=== PATIENT | female | born 1950 | race Caucasian/White ===

== ENCOUNTER → 2019-05-20 10:39 | Outpatient (BNVA) | payer MEDICARE, SELFPAY | PROVIDERS: Family Provider Family Medicine; PCP Family Medicine; Visit Provider Family Medicine | DX: R00.1 Bradycardia, unspecified (principal); F41.1 Generalized anxiety disorder; F41.9 Anxiety disorder, unspecified; K21.9 Gastro-esophageal reflux disease without esophagitis; F33.41 Major depressive disorder, recurrent, in partial remission | CPT/HCPCS: 80053; 85025 ==

== ENCOUNTER → 2020-01-20 12:48 | Outpatient (BNVA) | payer MEDICARE, SELFPAY | PROVIDERS: Family Provider Family Medicine; PCP Family Medicine; Visit Provider Family Medicine | DX: K21.9 Gastro-esophageal reflux disease without esophagitis (principal); R00.1 Bradycardia, unspecified; G47.33 Obstructive sleep apnea (adult) (pediatric); F41.9 Anxiety disorder, unspecified; F33.41 Major depressive disorder, recurrent, in partial remission; Z72.0 Tobacco use; Z12.31 Encounter for screening mammogram for malignant neoplasm of breast; F17.210 Nicotine dependence, cigarettes, uncomplicated | CPT/HCPCS: 80053; 81000; 85025 ==

== ENCOUNTER 2020-08-06 14:23 | Outpatient (CLI) | payer MEDICARE, SELFPAY ==
--- NOTE | 2020-08-06 14:29 | MM_ITS ---
WS: [id number] BILATERAL SCREENING DIGITAL MAMMOGRAM WITH CAD HISTORY: screening COMPARISON: 10/20/2010, 10/13/2010 and 09/28/2010 Bilateral CC and MLO views submitted. Computer aided detection analyzed. Breast composition: There are scattered areas of fibroglandular density. No suspicious masses, microc alcifications or architectural distortion. Biopsy clip and prior biopsy of the nodule middle depth RI GHT breast at 9:00 which is stable. Additional prior biopsy clip 3:00 LEFT breast. No suspicious mass es or calcifications. MM/[place] [id number] IMPRESSION: BI-RADS: 2-Benign FOLLOW UP: 1 Year Follow-up
== END 2020-08-06 14:24 | disposition home or self-care (01) ==
LOC: RADSHAW 14:28
PROVIDERS: PCP Family Medicine; Visit Provider Family Medicine
DX: Z12.31 Encounter for screening mammogram for malignant neoplasm of breast (principal)
CPT/HCPCS: 77067

== ENCOUNTER 2021-03-02 12:59 | Outpatient (CLI) | payer MEDICARE, SELFPAY ==
--- NOTE | 2021-03-02 13:14 | XR_ITS ---
WS: [id number] CERVICAL SPINE TECHNIQUE: 3 views of the cervical spine CLINICAL INFORMATION: neck pain COMPARISON: None. FINDINGS: Straightening of the normal cervical lordosis. Slight anterolisthesis C4 on C5. This measures approxi mately 2.2 mm. Disc space narrowing worse at C5-C6 and C6-C7. Moderate spondylitic changes. Moderate facet arthropathy in the mid cervical spine. Normal C1-C2 articulation. XR/XR cervical spine 3V* [id number] IMPRESSION: 1. Straightening of the normal cervical lordosis with anterolisthesis C4 on C5 measuring 2.2 mm 2. Mild disc space narrowing worse at C4-C5 C5-C6 and C6-C7. 3. Normal C1-C2 articulation. 4. Moderate facet arthropathy mid cervical spine.
== END 2021-03-02 13:00 | disposition home or self-care (01) ==
PROVIDERS: PCP Family Medicine; Visit Provider Family Medicine
DX: M47.812 Spondylosis without myelopathy or radiculopathy, cervical region (principal)
CPT/HCPCS: 72040

== ENCOUNTER 2021-03-27 04:34 | Inpatient (IN) | payer MEDICARE, SELFPAY ==
[2021-03-27] VITALS (28 sets, daily range): BP systolic 114–209; BP diastolic 62–103; PULSE 57–114; RESP 16–22; TEMP 36.3–37.2; O2SAT 90–98; BMI 38.1
--- NOTE | 2021-03-27 04:39 | CTR_ITS ---
PROCEDURE INFORMATION: Exam: CT Abdomen And Pelvis With Contrast Exam date and time: 03/27/2021 4:39 AM Age: 70 years old Clinical indication: Abdominal pain; Prior surgery; Surgery type: Gb. Hernia repair. ; Patient HX: Epigastric pain. Elevated wbc. Lactic of 5.6. ; Additional info: Abd pain TECHNIQUE: Imaging protocol: Computed tomography of the abdomen and pelvis with contrast. Radiation optimization: All CT scans at this facility use at least one of these dose optimization techniques: automated exposure control; mA and/or kV adjustment per patient size (includes targeted exams where dose is matched to clinical indication); or iterative reconstruction. Contrast material: OMNI 300; Contrast volume: 95 ml; Contrast route: INTRAVENOUS (IV); COMPARISON: CT abdomen pelvis w con* [id number] 06/09/2015 12:23 PM RADIATION DOSE METRICS: Total DLP (mGy-cm): 1544.53 FINDINGS: Liver: Normal. No mass. Gallbladder and bile ducts: There is mild intra and extrahepatic biliary ductal dilatation, likely secondary to post cholecystectomy status. Pancreas: Normal. No ductal dilation. Spleen: Normal. No splenomegaly. Adrenal glands: Normal. No mass. Kidneys and ureters: Symmetric enhancement of the kidneys. There is a subcentimeter focus of decreased attenuation in the left upper kidney, which is too small to characterize. There is bilateral nonobstructive kidney stones, the largest on the left measuring 0.6 cm. No hydronephrosis. Stomach and bowel: A small fat containing umbilical hernia is present. Multiple surgical clips are seen in the para-aortic region and along the pelvic wall bilaterally. There is multiple dilated loops of small bowel with scattered air-fluid levels, mild stranding of the surrounding fat, and transition point within an incarcerated Spigelian hernia in the left lower quadrant. Appendix: No evidence of appendicitis. Intraperitoneal space: Unremarkable. No free air. No significant fluid collection. Vasculature: Unremarkable. No abdominal aortic aneurysm. Lymph nodes: Unremarkable. No enlarged lymph nodes. Urinary bladder: Unremarkable as visualized. Reproductive: Unremarkable as visualized. Bones/joints: Degenerative changes of the spine seen. Soft tissues: See Stomach and bowel finding. CT/CT abdomen pelvis w con* [id number] IMPRESSION: Small-bowel obstruction with transition point within a left lower quadrant Spigelian hernia. COMMENTS: Consistent with the [employer]'s Incidental Findings Committee white paper (J Am Abeba Radiol 2018): Any incidental renal lesion less than 1 cm or classified as too small to characterize, or any incidental cystic renal lesion characterized as simple-appearing, is likely benign. No follow-up imaging is recommended for these lesions per consensus recommendations based on imaging criteria.
--- NOTE | 2021-03-27 04:40 | W.ED.ABDPA2 ---
Documented by User: Frida Felix MD 03/27/21 05:32 HPI - Abdominal Pain General: Chief Complaint: Abdominal Pain Stated Complaint: ABD PAIN Time Seen by Provider: 03/27/21 04:35 Source: patient and EMS Mode of arrival: EMS Limitations: no limitations History of Present Illness: HPI narrative: 70-year-old female states she has got chronic abdominal pain states she started having severe pain that started roughly 11 hours ago. She states this is worse than her typical pain from her hernias. States pain is currently a 10 out of 10 worse with movement improved with rest she has had no vomiting no diarrhea. She denies any radiation of her pain denies any chest pain denies any fevers. Associated Symptoms: Denies chills, dysuria and fever(s) Review of Systems Const: Denies: fever(s), chills, body aches or change in appetite Eyes: Denies: blurry vision or eye discomfort ENMT: Denies: throat pain or dental pain Card: Denies: chest pain Resp: Denies: dyspnea GI: Reports: abdominal pain : Denies: dysuria Musc: Denies: neck pain or back pain Skin/Breast: Denies: rash Neuro: Denies: headache(s) Psych: Denies: depression Surendra/Lymph: Denies: easy bruising All/Imm: Denies: urticaria PFSH ED PFSH: Medical History (Updated 03/29/21 @ 06:49 by Allen Ko DO) Anxiety GERD (gastroesophageal reflux disease) ALEJANDRO (obstructive sleep apnea) Recurrent major depression Surgical History (Updated 03/28/21 @ 14:27 by Miguel Garrett MD) History of cholecystectomy History of incisional hernia repair (~12/2017) History of incisional hernia repair (03/27/21) Left lower quadrant spigelian-laparoscopic History of total hysterectomy S/P laparotomy for SBO from adhesions Status post colonoscopy (~2017) Family History (Updated 03/27/21 @ 10:27 by Jasmeet Peterson MD) Other Family history non-contributory Social History Smoking and tobacco status: current every day smoker Alcohol intake: never Physical Exam Const: COMMON NORMALS: patient oriented x3 and healthy appearing GENERAL APPEARANCE: in distress HENMT: COMMON NORMALS: normocephalic and atraumatic HEAD & SCALP: normocephalic and atraumatic Eye: COMMON NORMALS: Equal, round and reactive pupils present and EOMs intact bilaterally PUPIL: Yes Equal, round and reactive pupils present Neck/C-Spine: COMMON NORMALS: full ROM and supple Chest: COMMONS NORMALS: normal inspection of the chest and normal palpation of entire chest wall Resp: COMMON NORMALS: normal respiratory effort, No retractions, No use of accessory muscles and clear to auscultation bilaterally AUSCULTATION: clear to auscultation bilaterally Cardio: COMMON NORMALS: regular rate, regular rhythm and No murmurs present (Cardio) RATE: regular rate RHYTHM: regular rhythm GI: COMMON NORMALS: Normal to inspection, nondistended, normoactive bowel sounds present, Soft to palpation and no masses PALPATION: Yes Soft to palpation and Yes Tenderness to palpation present (GI) Details: LLQ Extremity: COMMON NORMALS: normal to inspection and full ROM Neuro: COMMON NORMALS: patient oriented x3, moves all extremities and no focal motor deficits Psych: COMMON NORMALS: mental status grossly normal, Normal thought process present and cooperative THOUGHT PROCESS: Normal thought process present Skin: COMMON NORMALS: no rashes or lesions noted and no wounds GENERAL SKIN EXAM: no rashes or lesions noted Course Vital Signs: Vital signs: Vital Signs Temperature 98.4 F 03/29/21 04:00 Pulse Rate 71 03/29/21 04:00 Respiratory Rate 20 H 03/29/21 04:19 Blood Pressure 171/78 03/29/21 04:00 Pulse Oximetry 95 03/29/21 04:00 MDM - Abdominal Pain Lab Data: Labs: Lab Results 03/27/21 03/27/21 03/27/21 04:52 04:52 04:52 WBC 14.8 10^3/uL H 10 ^3/uL (4.0-10.0) RBC 4.90 10^6/uL 10^6 /uL (4.1-5.3) Hgb 14.5 g/dL g/dL (11.5-15.3) Hct 44.3 % % (37.0-47.0) MCV 90.4 fl fl (81-99) MCH 29.6 pg pg (28.0-34.0) MCHC 32.7 g/dL g/dL (30.0-36.0) RDW 13.2 % % (12.1-15.1) Plt Count 225 10^3/cmm 10^3 /cmm (130-400) MPV 12.2 fL H fL (7.4-10.4) Neut % (Auto) 89.8 % % Lymph % (Auto) 6.4 % % [place] % (Auto) 3.0 % % Eos % (Auto) 0.0 % % Baso % (Auto) 0.3 % % Neut # (Auto) 13.25 10^3/uL H 1 0^3/uL (1.8-7.7) Lymph # (Auto) 0.9 10^3/uL 10^3/ uL (0.8-4.8) [place] # (Auto) 0.5 10^3/uL 10^3/ uL (0.2-0.9) Eos # (Auto) 0.0 10^3/uL 10^3/ uL (0.0-0.8) Baso # (Auto) 0.1 10^3/uL 10^3/ uL (0.0-0.1) Nucleated RBC % (a uto) 0 % % Nucleated RBCs # 0.0 /100WBC /100W BC Sodium 136 mmol/L mmol/L (136-145) Potassium 3.5 mmol/L mmol/L (3.5-5.1) Chloride 97 mmol/L L mmol/ L (98-107) Carbon Dioxide 17 mmol/L L mmol/ L (22-29) Anion Gap 25.5 H (5-19) BUN 12 mg/dL mg/dL (8-23) Creatinine 0.7 mg/dL mg/dL (0.5-0.9) GFR Calculation 83.2 mL/min L mL/ min (90-130) Glucose 194 mg/dL H mg/dL (65-115) Calculated Osmolal ity 287 mOsm/kg mOsm/ kg (285-295) Lactic Acid Lactate 5.6 mmol/L H* mmo l/L (0.5-2.2) Calcium 9.0 mg/dL mg/dL (8.5-10.5) Total Bilirubin 0.8 mg/dL mg/dL (0.15-1.2) AST 17 U/L U/L (0-32) ALT 12 U/L U/L (0-33) Alkaline Phosphata se 86 IU/L IU/L (35-105) Troponin T Baselin e Total Protein 7.9 g/dL g/dL (6.6-8.7) Albumin 4.5 g/dL g/dL (3.5-5.2) Globulin 3.4 g/dL g/dL (1.3-4.6) Lipase 71 U/L H U/L (13-60) TSH Urine Color Urine Appearance Urine pH Ur Specific Gravit y Urine Protein Urine Glucose (UA) Urine Ketones Urine Blood Urine Nitrate Urine Bilirubin Prot Sulfosalicyli c Acd Urine Urobilinogen Ur Leukocyte Karis ase Urine RBC Urine WBC Ur Squamous Epith Cells Calcium Oxalate Cr ystal Uric Acid Crystals Triple Phos Antoinette ls Other Crystals Amorphous Sediment Urine Bacteria Urine Mucus 03/27/21 03/27/21 03/27/21 06:20 07:51 10:00 WBC RBC Hgb Hct MCV MCH MCHC RDW Plt Count MPV Neut % (Auto) Lymph % (Auto) [place] % (Auto) Eos % (Auto) Baso % (Auto) Neut # (Auto) Lymph # (Auto) [place] # (Auto) Eos # (Auto) Baso # (Auto) Nucleated RBC % (a uto) Nucleated RBCs # Sodium Potassium Chloride Carbon Dioxide Anion Gap BUN Creatinine GFR Calculation Glucose Calculated Osmolal ity Lactic Acid 4.5 mmol/L H* mmo l/L (0.5-2.2) Lactate Calcium Total Bilirubin AST ALT Alkaline Phosphata se Troponin T Baselin e Total Protein Albumin Globulin Lipase TSH 4.12 uIU/mL uIU/m L (0.27-4.20) Urine Color Yellow (Yellow) Urine Appearance Clear (CLEAR) Urine pH 8 H (5-7) Ur Specific Gravit y 1.010 (1.005-1.030) Urine Protein Neg (Negative) Urine Glucose (UA) Norm (Normal) Urine Ketones 1+ H (Negative) Urine Blood 2+ H (Negative) Urine Nitrate Negative (Negative) Urine Bilirubin Neg (Negative) Prot Sulfosalicyli c Acd Negative (Negative) Urine Urobilinogen Norm mg/dL mg/dL (Negative) Ur Leukocyte Karis ase Negative (Negative) Urine RBC 0-4 /hpf H /hpf (0-2) Urine WBC Rare /hpf /hpf (0-5) Ur Squamous Epith Cells 0-4 /hpf H /hpf (0-5) Calcium Oxalate Cr ystal None /hpf /hpf Uric Acid Crystals N /hpf /hpf Triple Phos Antoinette ls None /hpf /hpf Other Crystals N /hpf /hpf Amorphous Sediment Not Reportable Urine Bacteria 1+ /hpf H /hpf (NONE) Urine Mucus N /hpf /hpf 03/27/21 03/27/21 10:00 10:14 WBC RBC Hgb Hct MCV MCH MCHC RDW Plt Count MPV Neut % (Auto) Lymph % (Auto) [place] % (Auto) Eos % (Auto) Baso % (Auto) Neut # (Auto) Lymph # (Auto) [place] # (Auto) Eos # (Auto) Baso # (Auto) Nucleated RBC % (a uto) Nucleated RBCs # Sodium Potassium Chloride Carbon Dioxide Anion Gap BUN Creatinine GFR Calculation Glucose Calculated Osmolal ity Lactic Acid Lactate 2.3 mmol/L H mmol /L (0.5-2.2) Calcium Total Bilirubin AST ALT Alkaline Phosphata se Troponin T Baselin e 14 ng/L H ng/L (0-10) Total Protein Albumin Globulin Lipase TSH Urine Color Urine Appearance Urine pH Ur Specific Gravit y Urine Protein Urine Glucose (UA) Urine Ketones Urine Blood Urine Nitrate Urine Bilirubin Prot Sulfosalicyli c Acd Urine Urobilinogen Ur Leukocyte Karis ase Urine RBC Urine WBC Ur Squamous Epith Cells Calcium Oxalate Cr ystal Uric Acid Crystals Triple Phos Antoinette ls Other Crystals Amorphous Sediment Urine Bacteria Urine Mucus Discharge Plan Discharge Patient Disposition: Admitted As Inpatient Admit Provider: Miguel Garrett Clinical Impression: SBO (small bowel obstruction), Metabolic acidosis, Incarcerated ventral hernia, GERD (gastroesophageal reflux disease) Condition: Stable Coding Level of Care Code ED 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 Exam Comprehensive Documented by User: Allen Ko DO 03/29/21 06:49 HPI - Abdominal Pain General: Chief Complaint: Abdominal Pain Stated Complaint: ABD PAIN Time Seen by Provider: 03/27/21 04:35 PFSH ED PFSH: Medical History (Updated 03/29/21 @ 06:49 by Allen Ko DO) Anxiety GERD (gastroesophageal reflux disease) ALEJANDRO (obstructive sleep apnea) Recurrent major depression Surgical History (Updated 03/28/21 @ 14:27 by Miguel Garrett MD) History of cholecystectomy History of incisional hernia repair (~12/2017) History of incisional hernia repair (03/27/21) Left lower quadrant spigelian-laparoscopic History of total hysterectomy S/P laparotomy for SBO from adhesions Status post colonoscopy (~2017) Family History (Updated 03/27/21 @ 10:27 by Jasmeet Peterson MD) Other Family history non-contributory Social History Smoking and tobacco status: current every day smoker Alcohol intake: never Course Vital Signs: Vital signs: Vital Signs Temperature 98.4 F 03/29/21 04:00 Pulse Rate 71 03/29/21 04:00 Respiratory Rate 20 H 03/29/21 04:19 Blood Pressure 171/78 03/29/21 04:00 Pulse Oximetry 95 03/29/21 04:00 MDM - Abdominal Pain MDM Narrative: Medical decision making narrative: Care assumed a change of shift. CT shows bowel obstruction with a abdominal wall hernia. Discussed with hospitalist and with surgery. Patient has large amount of fluid in the stomach NG placed she has been given antiemetic and appropriately resuscitated be taken directly to surgery. Lab Data: Labs: Lab Results 03/27/21 03/27/21 03/27/21 04:52 04:52 04:52 WBC 14.8 10^3/uL H 10 ^3/uL (4.0-10.0) RBC 4.90 10^6/uL 10^6 /uL (4.1-5.3) Hgb 14.5 g/dL g/dL (11.5-15.3) Hct 44.3 % % (37.0-47.0) MCV 90.4 fl fl (81-99) MCH 29.6 pg pg (28.0-34.0) MCHC 32.7 g/dL g/dL (30.0-36.0) RDW 13.2 % % (12.1-15.1) Plt Count 225 10^3/cmm 10^3 /cmm (130-400) MPV 12.2 fL H fL (7.4-10.4) Neut % (Auto) 89.8 % % Lymph % (Auto) 6.4 % % [place] % (Auto) 3.0 % % Eos % (Auto) 0.0 % % Baso % (Auto) 0.3 % % Neut # (Auto) 13.25 10^3/uL H 1 0^3/uL (1.8-7.7) Lymph # (Auto) 0.9 10^3/uL 10^3/ uL (0.8-4.8) [place] # (Auto) 0.5 10^3/uL 10^3/ uL (0.2-0.9) Eos # (Auto) 0.0 10^3/uL 10^3/ uL (0.0-0.8) Baso # (Auto) 0.1 10^3/uL 10^3/ uL (0.0-0.1) Nucleated RBC % (a uto) 0 % % Nucleated RBCs # 0.0 /100WBC /100W BC Sodium 136 mmol/L mmol/L (136-145) Potassium 3.5 mmol/L mmol/L (3.5-5.1) Chloride 97 mmol/L L mmol/ L (98-107) Carbon Dioxide 17 mmol/L L mmol/ L (22-29) Anion Gap 25.5 H (5-19) BUN 12 mg/dL mg/dL (8-23) Creatinine 0.7 mg/dL mg/dL (0.5-0.9) GFR Calculation 83.2 mL/min L mL/ min (90-130) Glucose 194 mg/dL H mg/dL (65-115) Calculated Osmolal ity 287 mOsm/kg mOsm/ kg (285-295) Lactic Acid Lactate 5.6 mmol/L H* mmo l/L (0.5-2.2) Calcium 9.0 mg/dL mg/dL (8.5-10.5) Total Bilirubin 0.8 mg/dL mg/dL (0.15-1.2) AST 17 U/L U/L (0-32) ALT 12 U/L U/L (0-33) Alkaline Phosphata se 86 IU/L IU/L (35-105) Troponin T Baselin e Total Protein 7.9 g/dL g/dL (6.6-8.7) Albumin 4.5 g/dL g/dL (3.5-5.2) Globulin 3.4 g/dL g/dL (1.3-4.6) Lipase 71 U/L H U/L (13-60) TSH Urine Color Urine Appearance Urine pH Ur Specific Gravit y Urine Protein Urine Glucose (UA) Urine Ketones Urine Blood Urine Nitrate Urine Bilirubin Prot Sulfosalicyli c Acd Urine Urobilinogen Ur Leukocyte Karis ase Urine RBC Urine WBC Ur Squamous Epith Cells Calcium Oxalate Cr ystal Uric Acid Crystals Triple Phos Antoinette ls Other Crystals Amorphous Sediment Urine Bacteria Urine Mucus 03/27/21 03/27/21 03/27/21 06:20 07:51 10:00 WBC RBC Hgb Hct MCV MCH MCHC RDW Plt Count MPV Neut % (Auto) Lymph % (Auto) [place] % (Auto) Eos % (Auto) Baso % (Auto) Neut # (Auto) Lymph # (Auto) [place] # (Auto) Eos # (Auto) Baso # (Auto) Nucleated RBC % (a uto) Nucleated RBCs # Sodium Potassium Chloride Carbon Dioxide Anion Gap BUN Creatinine GFR Calculation Glucose Calculated Osmolal ity Lactic Acid 4.5 mmol/L H* mmo l/L (0.5-2.2) Lactate Calcium Total Bilirubin AST ALT Alkaline Phosphata se Troponin T Baselin e Total Protein Albumin Globulin Lipase TSH 4.12 uIU/mL uIU/m L (0.27-4.20) Urine Color Yellow (Yellow) Urine Appearance Clear (CLEAR) Urine pH 8 H (5-7) Ur Specific Gravit y 1.010 (1.005-1.030) Urine Protein Neg (Negative) Urine Glucose (UA) Norm (Normal) Urine Ketones 1+ H (Negative) Urine Blood 2+ H (Negative) Urine Nitrate Negative (Negative) Urine Bilirubin Neg (Negative) Prot Sulfosalicyli c Acd Negative (Negative) Urine Urobilinogen Norm mg/dL mg/dL (Negative) Ur Leukocyte Karis ase Negative (Negative) Urine RBC 0-4 /hpf H /hpf (0-2) Urine WBC Rare /hpf /hpf (0-5) Ur Squamous Epith Cells 0-4 /hpf H /hpf (0-5) Calcium Oxalate Cr ystal None /hpf /hpf Uric Acid Crystals N /hpf /hpf Triple Phos Antoinette ls None /hpf /hpf Other Crystals N /hpf /hpf Amorphous Sediment Not Reportable Urine Bacteria 1+ /hpf H /hpf (NONE) Urine Mucus N /hpf /hpf 03/27/21 03/27/21 10:00 10:14 WBC RBC Hgb Hct MCV MCH MCHC RDW Plt Count MPV Neut % (Auto) Lymph % (Auto) [place] % (Auto) Eos % (Auto) Baso % (Auto) Neut # (Auto) Lymph # (Auto) [place] # (Auto) Eos # (Auto) Baso # (Auto) Nucleated RBC % (a uto) Nucleated RBCs # Sodium Potassium Chloride Carbon Dioxide Anion Gap BUN Creatinine GFR Calculation Glucose Calculated Osmolal ity Lactic Acid Lactate 2.3 mmol/L H mmol /L (0.5-2.2) Calcium Total Bilirubin AST ALT Alkaline Phosphata se Troponin T Baselin e 14 ng/L H ng/L (0-10) Total Protein Albumin Globulin Lipase TSH Urine Color Urine Appearance Urine pH Ur Specific Gravit y Urine Protein Urine Glucose (UA) Urine Ketones Urine Blood Urine Nitrate Urine Bilirubin Prot Sulfosalicyli c Acd Urine Urobilinogen Ur Leukocyte Karis ase Urine RBC Urine WBC Ur Squamous Epith Cells Calcium Oxalate Cr ystal Uric Acid Crystals Triple Phos Antoinette ls Other Crystals Amorphous Sediment Urine Bacteria Urine Mucus Discharge Plan Discharge Patient Disposition: Admitted As Inpatient Admit Provider: Miguel Garrett Clinical Impression: SBO (small bowel obstruction), Metabolic acidosis, Incarcerated ventral hernia, GERD (gastroesophageal reflux disease) Condition: Stable Coding Level of Care Code ED 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 Fwd Exam Comprehensive
[2021-03-27] MEDS: ondansetron 2 mg/ML SDV 2 mL 4 MG IVP ×3 (04:47→08:45)
[2021-03-27] MEDS: morphine 4 mg/mL SDV 1 mL IVP (04:48)
[2021-03-27] MEDS: sodium chloride 0.9% 1,000 ML 999 ML IV ×2 (04:57→06:11)
[2021-03-27 05:10] LABS: Basophils # 0.1 10^3/uL (0.0-0.1); Basophils % 0.3 %; Hematocrit 44.3 % (37.0-47.0); Hemoglobin 14.5 g/dL (11.5-15.3); Lymphocytes # 0.9 10^3/uL (0.8-4.8); Lymphocytes % 6.4 %; Mean Corpuscular HGB Conc 32.7 g/dL (30.0-36.0); Mean Corpuscular Hemoglobin 29.6 pg (28.0-34.0); Mean Corpuscular Volume 90.4 fl (81-99); Mean Platelet Volume 12.2 fL (7.4-10.4); Monocytes # 0.5 10^3/uL (0.2-0.9); Neutrophils # 13.25 10^3/uL (1.8-7.7); Neutrophils % 89.8 %; Nucleated Red Blood Cells % 0 %; Platelet Count 225 10^3/cmm (130-400); Red Cell Distribution Width 13.2 % (12.1-15.1); White Blood Count 14.8 10^3/uL (4.0-10.0)
[2021-03-27 05:26] LABS: Alanine Aminotransferase 12 U/L (0-33); Albumin Level 4.5 g/dL (3.5-5.2); Alkaline Phosphatase 86 IU/L (35-105); Anion Gap 25.5 (5-19); Aspartate Amino Transferase 17 U/L (0-32); Blood Urea Nitrogen 12 mg/dL (8-23); Carbon Dioxide 17 mmol/L (22-29); Chloride 97 mmol/L (98-107); Creatinine Clr Calc Pharmacy 81.9304; Globulin 3.4 g/dL (1.3-4.6); Glomerular Filtration Rate 83.2 mL/min (90-130); Glucose 194 mg/dL (65-115); Lipase 71 U/L (13-60); Osmolality Calculated 287 mOsm/kg (285-295); Potassium 3.5 mmol/L (3.5-5.1); Sodium 136 mmol/L (136-145); Total Bilirubin 0.8 mg/dL (0.15-1.2); Total Protein 7.9 g/dL (6.6-8.7)
[2021-03-27 05:27] LABS: Lactate (Lactic Acid level) 5.6 mmol/L (0.5-2.2)
--- NOTE | 2021-03-27 05:30 | XRR_ITS ---
PROCEDURE INFORMATION: Exam: XR Chest Exam date and time: 03/27/2021 5:30 AM Age: 70 years old Clinical indication: Patient HX: Epigastric pain. Hypertensive. TECHNIQUE: Imaging protocol: XR of the chest. Views: 1 view. COMPARISON: CR XR cervical spine 3V* [id number] 03/02/2021 1:20 PM FINDINGS: Lungs: Unremarkable. No consolidation. Pleural spaces: Unremarkable. No pleural effusion. No pneumothorax. Heart/Mediastinum: Unremarkable. No cardiomegaly. Bones/joints: Unremarkable. XR/XR chest 1V portable [id number] IMPRESSION: No acute findings.
--- NOTE | 2021-03-27 05:31 | ECG_ITS ---
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 Measurements Intervals [place] Rate: 74 P: 52 TN: 172 QRS: -38 QRSD: 85 T: 46 QT: 336 QTc: 373 Interpretive Statements SINUS RHYTHM LEFT AXIS DEVIATION [QRS AXIS < -30] NONSPECIFIC T-WAVE ABNORMALITY Compared to ECG 12/26/2017 00:29:34 T-wave abnormality now present Myocardial infarct finding no longer present Electronically Signed On 03-27-2021 14:57:22 ALMOND BLANCHER HAND by Veronica Howard M.D. [id number]
[2021-03-27] MEDS: iohexol 300 mg/mL 100 mL Btl IV (05:43)
[2021-03-27] MEDS: sodium chloride 0.9% 500 ML 999 ML IV (05:59)
[2021-03-27] MEDS: piperacillin-tazobactam 3.375 GM in sodium chloride 0.9% (plus) 50 ML IV ×3 (06:01→20:21)
[2021-03-27] MEDS: promethazine 25 mg/mL SDV 1 mL IM (06:15)
[2021-03-27 06:57] LABS: Add Urine Microscopic? YES; Bilirubin Urine Neg (Negative); Blood Urine 2+ (Negative); Glucose Urine UA Norm (Normal); Ketones Urine 1+ (Negative); Leukocyte Esterase Urine Negative (Negative); Nitrate Urine Negative (Negative); Protein Urine Neg (Negative); RBC Urine 0-4 /hpf (0-2); Sulfosalicylic Acid Urine Negative (Negative); Urine Appearance Clear (CLEAR); Urine Color Yellow (Yellow); Urobilinogen Urine Norm (Negative); pH Urine 8 (5-7)
[2021-03-27 06:58] LABS: Bacteria Urine 1+ /hpf; Squamous Epithelial Cell Urine 0-4 /hpf (0-5); WBC Urine RARE /hpf (0-5)
[2021-03-27 06:59] LABS: Mucus Urine N /hpf; Other Crystals Urine N /hpf; Uric Acid Crystals Urine N /hpf
[2021-03-27 07:01] LABS: Add Urine Culture? No
[2021-03-27] MEDS: metoclopramide 5 mg/mL SDV 2 mL IVP (07:54)
--- NOTE | 2021-03-27 08:13 | XRR_ITS ---
PROCEDURE INFORMATION: Exam: XR Chest Exam date and time: 03/27/2021 8:13 AM Age: 70 years old Clinical indication: Device placement; Ng tube; Additional info: Ng tube placement TECHNIQUE: Imaging protocol: XR of the chest. Views: 1 view. COMPARISON: CR (CHEST, ) 03/27/2021 5:32 AM FINDINGS: Tubes, catheters and devices: Feeding tube is in satisfactory position. Lungs: Unremarkable. No consolidation. Pleural spaces: Unremarkable. No pleural effusion. No pneumothorax. Heart/Mediastinum: Stable cardiomediastinal silhouette. Bones/joints: Degenerative changes of the spine seen. XR/XR chest 1V [id number] IMPRESSION: No evidence of active cardiopulmonary disease.
--- NOTE | 2021-03-27 08:14 | PM.HP ---
Providers/Chief Complaint Primary Care Provider: Alisha Fisher MD Chief Complaint: ABD PAIN History of Present Illness Yaa Sandhu is a 70 year old female who presented to the hospital with chief complaint of recurrent nausea and vomiting. Patient stating that her symptoms started around 4:00 on Monday. For last 1 month she has been noticing swelling around her left lower quadrant, she also saw her PCP, her hernia was reversible until yesterday. Because of excessive nausea and vomiting episode she decided to come to the hospital around 4 AM this morning. Her last bowel movement was at 8:00 AM on 03/27, she has not noticed any fever, she denies previous history of AL, coronary disease or stroke. She has quit smoking successfully. She lives with her at home, independent for daily activities can take multiple flight of stairs. No chest pain or shortness of breath. Hospital service requested to admit the patient and medically clear her before surgery. She does carry history of bradycardia she is not on any AV chrissy blocking agent blood pressure is normal she is afebrile, no active chest pain, EKG showing sinus rhythm no ischemic or infarct changes, I have requested echo and serial troponin EKG which can be done after surgery, she has good functional status at home, considering urgent nature of the surgery I would not recommend preoperative work-up at this point In the ER she got diagnosed with small bowel obstruction, left lower quadrant Spigelian hernia. Leukocytosis, lactic acid high, tender abdomen, NG tube is draining bilious content 200 mL noted, she was constantly vomiting during the interview, Dr. Garrett notified Review of Systems Const: Reports: body aches and fatigue; Denies: fever(s) Eyes: Denies: change in vision ENMT: Denies: throat pain Card: Denies: chest pain Resp: Denies: dyspnea GI: Reports: abdominal pain, nausea and vomiting : Denies: flank pain Musc: Denies: neck pain Skin/Breast: Denies: rash Neuro: Denies: headache(s) Psych: Denies: anxiety Endo: Denies: polyuria Su[place]rda/Lymph: Denies: easy bruising Medications/Allergies Home Medications Medication Instructions Recorded Confirmed Last Taken Type cholecalciferol (vitamin D3) 10 10 mcg PO DAILY 01/20/20 03/27/21 Unknown History mcg (400 unit) capsule melatonin 10 mg capsule 10 mg PO DAILY 01/20/20 03/27/21 Unknown History citalopram 40 mg tablet 80 mg .ROUTE DAILY #60 tab 03/02/21 03/27/21 Unknown Rx clonazepam 1 mg tablet 1 mg PO BID 30 Days #60 tab 03/02/21 03/27/21 Unknown Rx naproxen 500 mg tablet 500 mg PO BID PRN #60 tab 03/02/21 03/27/21 Unknown Rx Allergies Allergy/AdvReac Type Severity Reaction Status Date / Time metronidazole [From Flagyl] Allergy nausea Verified 03/27/21 04:41 PFSH Acute PFSH: Medical History Anxiety Bradycardia GERD (gastroesophageal reflux disease) History of abdominal hernia ALEJANDRO (obstructive sleep apnea) Recurrent major depression Tobacco abuse Surgical History History of cholecystectomy History of total hysterectomy Family History (Updated 03/27/21 @ 10:27 by Jasmeet Peterson MD) Other Family history non-contributory Social History Smoking and tobacco status: current every day smoker Alcohol intake: never Vitals/I&O/Wt Last Vital Signs Temp 97.8 F 03/27/21 04:35 Pulse 57 L 03/27/21 05:01 Resp 19 H 03/27/21 05:01 BP 134/66 03/27/21 06:19 Pulse Ox 96 03/27/21 05:01 03/26/21 03/27/21 03/27/21 22:59 06:59 14:59 Intake Total 1000 / 1000 500 / 500 Balance 1000 / 1000 500 / 500 Weight last 48 hrs Weight 77.111 kg Physical Exam Narrative: EXAM NARRATIVE: Patient was patient was in distress Appears stated age Clinical signs of dehydration Abdomen does not have signs of guarding or rigidity tenderness to deep palpation left lower quadrant and hypogastric region Active emesis S1, S2 sinus rhythm No murmur appreciated EOMI, PERRLA Nonfocal exam Appropriate mood and affect Data : 03/27/21 04:52 03/27/21 04:52 Micro: Microbiology 03/27/21 06:15 Blood Culture - Preliminary Blood SPECIMEN COLLECTED 03/27/21 05:50 Blood Culture - Preliminary Blood SPECIMEN COLLECTED A&P Assessment and plan (1) Abdominal wall hernia: Status: Acute (2) Bradycardia: Status: Acute (3) SBO (small bowel obstruction): Status: Acute (4) Metabolic acidosis: Status: Acute Additional A&P Information Small bowel obstruction Left lower quadrant spigelian hernia Patient is going to the OR High lactic acid, leukocytosis Active emesis Continue Zosyn No preoperative work-up needed considering urgent nature of the surgery, patient does not have any cardiac history, bradycardia however current heart rate is in 60s with high blood pressure, Requested echo and serial troponin Requested TSH Patient has good functional status, very active for her age, recently quit smoking N.p.o. 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
--- NOTE | 2021-03-27 08:20 | ECG_ITS ---
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 Measurements Intervals [place] Rate: 85 P: 59 MA: 166 QRS: -40 QRSD: 90 T: 47 QT: 379 QTc: 451 Interpretive Statements SINUS RHYTHM LEFT AXIS DEVIATION [QRS AXIS < -30] MINIMAL VOLTAGE CRITERIA FOR LVH, CONSIDER NORMAL VARIANT [MEETS CRITERIA IN ONE OF: R(aVL), S(V1), R(V5), R(V5/V6)+S(V1)] NONSPECIFIC T-WAVE ABNORMALITY Compared to ECG 03/27/2021 06:00:28 No significant changes Electronically Signed On 03-27-2021 14:58:21 JAVA SOFTWARE DEVELOPER by Veronica oHward M.D. [id number]
[2021-03-27 08:25] LABS: Lactic Sepsis W/Reflex 4.5 mmol/L (0.5-2.2)
[2021-03-27] MEDS: HYDROmorphone 1 mg/mL INJ 1 mL 0.4 MG IVP ×3 (08:46→22:40)
[2021-03-27] MEDS: pantoprazole 40 mg SDV IVP (08:50)
[2021-03-27 09:39] LABS: Reflex Lactate Order REFLEX LACTIC ORDERD
[2021-03-27 10:22] LABS: Troponin(5th) Baseline 14 ng/L (0-10)
[2021-03-27 10:35] LABS: Thyroid Stimulating Hormone 4.12 uIU/mL (0.27-4.20)
--- NOTE | 2021-03-27 11:39 | ANES.PREANE2 ---
Pre-Anesthetic Assessment Pre-Anesthetic Assessment: Height/Weight: Height 1.42 m Weight 77.111 kg Temp Pulse Resp BP Pulse Ox 97.8 F 66 20 H 184/103 98 03/27/21 04:35 03/27/21 08:51 03/27/21 08:51 03/27/21 08:51 03/27/21 08:51 Was Beta Christopher taken within 24 hours: N/A Was Clonidine taken within 24 hours: N/A Social: Social History: Tobacco (h/o smoknig) and No alcohol Exam: Pre-Anes Outpt Exam: alert, oriented x 3, clear to auscultation bilaterally and regular rate & rhythm Airway: Submandibular: WNL Cervical ROM: WNL MP: 2 Dentition: Full Pulmonary: Pulmonary: COPD and Sleep apnea CV/HEM: CV/HEM: Arrythmia (h/o bradycardia) GI: GI: GERD Comments: Incarcerated hernia, SBO Metabolic: Metabolic: Morbid obesity Neuropsych: Neuropsych: Anxiety and Depression Anesthetic Plan: ASA status: 3E Anesthesia: General (MOD RSI--NG in place) Risk of > 500 ml blood loss (7ml/kg in children): No Meds/Allergies Current Medications: Current Medications Generic Name Dose Route Start Last Admin Trade Name Freq PRN Reason Stop Dose Admin Hydromorphone HCl 0.4 mg 03/27/21 08:16 03/27/21 08:46 Hydromorphone 1 Mg/Ml Inj 1 Ml IVP 0.4 mg Q4H PRN Administration pain Ondansetron HCl 4 mg 03/27/21 08:16 03/27/21 08:45 Ondansetron 2 Mg /Ml Sdv 2 Ml IVP 4 mg Q6H PRN Administration NAUSEA AND VOMITI NG Pantoprazole Sodiu m 40 mg 03/27/21 09:00 03/27/21 08:50 Pantoprazole 40 Mg Sdv IVP 40 mg DAILY ISAIAH Administration PFSH Anesthesia PFSH: Medical History Anxiety Bradycardia GERD (gastroesophageal reflux disease) History of abdominal hernia ALEJANDRO (obstructive sleep apnea) Recurrent major depression Tobacco abuse Surgical History History of cholecystectomy History of total hysterectomy Family History (Updated 03/27/21 @ 10:27 by Jasmeet Peterson MD) Other Family history non-contributory Social History Smoking and tobacco status: current every day smoker Alcohol intake: never Data Anesthesia CBC & Chem 7: 03/27/21 04:52 03/27/21 04:52 Other Labs: Laboratory Results - last 48 hr 03/27/21 03/27/21 03/27/21 04:52 04:52 04:52 WBC 14.8 H RBC 4.90 Hgb 14.5 Hct 44.3 MCV 90.4 MCH 29.6 MCHC 32.7 RDW 13.2 Plt Count 225 MPV 12.2 H Neut % (Auto) 89.8 Lymph % (Auto) 6.4 [place] % (Auto) 3.0 Eos % (Auto) 0.0 Baso % (Auto) 0.3 Neut # (Auto) 13.25 H Lymph # (Auto) 0.9 [place] # (Auto) 0.5 Eos # (Auto) 0.0 Baso # (Auto) 0.1 Nucleated RBC % (auto) 0 Nucleated RBCs # 0.0 Sodium 136 Potassium 3.5 Chloride 97 L Carbon Dioxide 17 L Anion Gap 25.5 H BUN 12 Creatinine 0.7 GFR Calculation 83.2 L Glucose 194 H Calculated Osmolality 287 Lactic Acid Lactate 5.6 H* Calcium 9.0 Total Bilirubin 0.8 AST 17 ALT 12 Alkaline Phosphatase 86 Troponin T Baseline Total Protein 7.9 Albumin 4.5 Globulin 3.4 Lipase 71 H TSH Urine Color Urine Appearance Urine pH Ur Specific [place] Urine Protein Urine Glucose (UA) Urine Ketones Urine Blood Urine Nitrate Urine Bilirubin Prot Sulfosalicylic Acd Urine Urobilinogen Ur Leukocyte Esterase Urine RBC Urine WBC Ur Squamous Epith Cells Calcium Oxalate Crystal Uric Acid Crystals Triple Phos Crystals Other Crystals Amorphous Sediment Urine Bacteria Urine Mucus 03/27/21 03/27/21 03/27/21 06:20 07:51 10:00 WBC RBC Hgb Hct MCV MCH MCHC RDW Plt Count MPV Neut % (Auto) Lymph % (Auto) [place] % (Auto) Eos % (Auto) Baso % (Auto) Neut # (Auto) Lymph # (Auto) [place] # (Auto) Eos # (Auto) Baso # (Auto) Nucleated RBC % (auto) Nucleated RBCs # Sodium Potassium Chloride Carbon Dioxide Anion Gap BUN Creatinine GFR Calculation Glucose Calculated Osmolality Lactic Acid 4.5 H* Lactate Calcium Total Bilirubin AST ALT Alkaline Phosphatase Troponin T Baseline Total Protein Albumin Globulin Lipase TSH 4.12 Urine Color Yellow Urine Appearance Clear Urine pH 8 H Ur Specific [place] 1.010 Urine Protein Neg Urine Glucose (UA) Norm Urine Ketones 1+ H Urine Blood 2+ H Urine Nitrate Negative Urine Bilirubin Neg Prot Sulfosalicylic Acd Negative Urine Urobilinogen Norm Ur Leukocyte Esterase Negative Urine RBC 0-4 H Urine WBC Rare Ur Squamous Epith Cells 0-4 H Calcium Oxalate Crystal None Uric Acid Crystals N Triple Phos Crystals None Other Crystals N Amorphous Sediment Not Reportable Urine Bacteria 1+ H Urine Mucus N 03/27/21 10:00 WBC RBC Hgb Hct MCV MCH MCHC RDW Plt Count MPV Neut % (Auto) Lymph % (Auto) [place] % (Auto) Eos % (Auto) Baso % (Auto) Neut # (Auto) Lymph # (Auto) [place] # (Auto) Eos # (Auto) Baso # (Auto) Nucleated RBC % (auto) Nucleated RBCs # Sodium Potassium Chloride Carbon Dioxide Anion Gap BUN Creatinine GFR Calculation Glucose Calculated Osmolality Lactic Acid Lactate Calcium Total Bilirubin AST ALT Alkaline Phosphatase Troponin T Baseline 14 H Total Protein Albumin Globulin Lipase TSH Urine Color Urine Appearance Urine pH Ur Specific [place] Urine Protein Urine Glucose (UA) Urine Ketones Urine Blood Urine Nitrate Urine Bilirubin Prot Sulfosalicylic Acd Urine Urobilinogen Ur Leukocyte Esterase Urine RBC Urine WBC Ur Squamous Epith Cells Calcium Oxalate Crystal Uric Acid Crystals Triple Phos Crystals Other Crystals Amorphous Sediment Urine Bacteria Urine Mucus Micro: Microbiology 03/27/21 06:15 Blood Culture - Preliminary Blood SPECIMEN COLLECTED 03/27/21 05:50 Blood Culture - Preliminary Blood SPECIMEN COLLECTED Cardiac Studies: No Data to Display
--- NOTE | 2021-03-27 13:13 | P.CONIM_ITS ---
Providers/Reason For Consult Consulting Physician/Specialty*: General Surgery Dr. Garrett Reason for Consult*: Incarcerated spigelian hernia with small bowel obstruction Attending Physician: Miguel Garrett MD Primary Care Provider: Alisha Fisher MD History of Present Illness History of Present Illness Yaa Sandhu is a 70 year old female on whom I previously performed incisional hernia repair in 2018 for incarcerated incisional hernia containing transverse colon. Patient presented to the emergency room this morning with abdominalpain, nausea and vomiting since last night. Patient also had a bowel movement yesterday. She had a last colonoscopy in 2018 which was normal. At present she has an NG tube in place and mainly complains of pain in the left lower quadrant. She has had a prior hysterectomy, cholecystectomy and she had a laparotomy for small bowel obstruction secondary to radiation 6 months after her hysterectomy Review of Systems General: Reports: 10 or more systems reviewed and unremarkable except in HPI and below Meds/Allergies Home Medications and Allergies Home Medications Medication Instructions Recorded Confirmed Last Taken Type cholecalciferol (vitamin D3) 10 10 mcg PO DAILY 01/20/20 03/27/21 Unknown History mcg (400 unit) capsule melatonin 10 mg capsule 10 mg PO DAILY 01/20/20 03/27/21 Unknown History citalopram 40 mg tablet 80 mg .ROUTE DAILY #60 tab 03/02/21 03/27/21 Unknown Rx clonazepam 1 mg tablet 1 mg PO BID 30 Days #60 tab 03/02/21 03/27/21 Unknown Rx naproxen 500 mg tablet 500 mg PO BID PRN #60 tab 03/02/21 03/27/21 Unknown Rx Allergies Allergy/AdvReac Type Severity Reaction Status Date / Time metronidazole [From Flagyl] Allergy nausea Verified 03/27/21 04:41 Current Medications Current Medications Generic Name Dose Route Start Last Admin Trade Name Freq PRN Reason Stop Dose Admin Hydromorphone HCl 0.4 mg 03/27/21 08:16 03/27/21 08:46 Hydromorphone 1 Mg/Ml Inj 1 Ml IVP 0.4 mg Q4H PRN Administration pain Ondansetron HCl 4 mg 03/27/21 08:16 03/27/21 08:45 Ondansetron 2 Mg/Ml Sdv 2 Ml IVP 4 mg Q6H PRN Administration NAUSEA AND VOMITING Pantoprazole Sodium 40 mg 03/27/21 09:00 03/27/21 08:50 Pantoprazole 40 Mg Sdv IVP 40 mg DAILY SIAIAH Administration PFSH Acute PFSH: Medical History (Updated 03/27/21 @ 13:19 by Miguel Garrett MD) Anxiety GERD (gastroesophageal reflux disease) ALEJANDRO (obstructive sleep apnea) Recurrent major depression Surgical History (Updated 03/27/21 @ 13:13 by Miguel Garrett MD) History of cholecystectomy History of incisional hernia repair (~12/2017) History of total hysterectomy S/P laparotomy for SBO from adhesions Status post colonoscopy (~2017) Family History (Updated 03/27/21 @ 10:27 by Jasmeet Peterson MD) Other Family history non-contributory Social History Smoking and tobacco status: current every day smoker Alcohol intake: never Vitals/I&O/Wt Last Vital Signs Temp 97.8 F 03/27/21 04:35 Pulse 66 03/27/21 08:51 Resp 20 H 03/27/21 08:51 BP 184/103 03/27/21 08:51 Pulse Ox 98 03/27/21 08:51 03/26/21 03/27/21 03/27/21 22:59 06:59 14:59 Intake Total 1000 / 1000 500 / 500 Balance 1000 / 1000 500 / 500 Weight last 48 hrs Weight 170 lb Physical Exam Narrative: EXAM NARRATIVE: HEENT: Normocephalic Eye: Sclera /conjunctiva normal Respiratory and chest: Bilateral clear breath sounds on auscultation Cardiovascular: Normal S1 and S2 heart sounds Abdomen: Soft to palpation, tender mass palpable in the left lower quadrant, no Skin changes Neurological: Oriented to place person and time Skin: Intact, no lesions appreciated on gross exam Urinary Catheter Management^: Walton: Cath Placed During This Visit: yes Urinary Catheter Date of Insertion: 03/27/21 Urinary Catheter Time of Insertion: 09:19 Data Micro: Micro: Microbiology 03/27/21 06:15 Blood Culture - Pr eliminary Blood SPECIMEN QUINN ZECHARIAH 03/27/21 05:50 Blood Culture - Pr eliminary Blood SPECIMEN [facility] ZECHARIAH A&P Assessment and plan (1) Incarcerated ventral hernia: 70-year-old female with history of prior incisional hernia repair with mesh who now presents with incarcerated spigelian hernia in the left lower quadrant. CT abdomen pelvis shows small bowel obstruction with a transition point in the hernia. Plan for laparoscopic possible open incisional hernia repair with mesh, possible bowel resection, possible ostomy. Procedure, risks, benefits and alternatives have been discussed with the patient who wishes to proceed with surgery. Status: Acute Consult Attestations Medical Necessity Statement: As per attending physician Coding Level of Care Code Acute [facility] Diagnoses Incarcerated ventral hernia K43.6
--- NOTE | 2021-03-27 15:34 | P.OP_ITS ---
Operative Report Date of procedure: March 27, 2021 Pre-op Diagnosis: Incarcerated spigelian hernia causing small bowel obstruction Post-op Diagnosis: Incarcerated spigelian hernia left lower quadrant causing small bowel obstruction No evidence of necrotic bowel requiring resection Extensive small bowel adhesions to the abdominal wall from prior incisional hernia repair with Proceed mesh Procedure Done: 1. Laparoscopic lysis of adhesions for 15 minutes 2. Laparoscopic repair of incarcerated spigelian (ventral) hernia left lower quadrant with [address] mesh Pathology: none sent Surgeon: Miguel Garrett Anesthesia: General Condition: stable Disposition: PACU Procedure: The patient was taken to the Operating Room and was intubated under general anesthesia after the antibiotic had been administered. The abdomen was prepped and draped in a sterile manner. Using a 15 blade, a 2-cm incision was made in the right upper quadrant in the anterior axillary line and pneumoperitoneum was created using Verres needle. A 5 mm port was placed using Optiview technique and 15 mm of pneumoperitoneum was created. 5 mm port was placed in the right lower quadrant since there were multiple small bowel loops adherent to the abdominal wall from prior hernia repair with mesh. Lysis of adhesions was performed for 15 minutes in order to mobilize in the small bowel from the abdominal wall to visualize the incarcerated Spigelian hernia. Another 5 mm port was placed in the suprapubic area. Incarcerated small bowel was reduced from the Spigelian hernia in the left lower quadrant without difficulty and the bowel appeared viable. A spinal needle was introduced through the abdominal wall and the edges of the hernial defect were marked and measured 3 x 3 cm. A 4 cm margin was marked on the abdominal wall on the outer edge of the hernial defect. The right lower quadrant port was converted to a 10 mm port. 10 x [address] mesh was selected and 4 separate 2-0 [place]-Matias sutures were placed at the 4 corners of the mesh. Grannie needle was passed through the stab incisions and used to grasp the free ends of the [place]-Matias sutures which were then used to pull the mesh up against the abdominal wall; 5 mm SecurStraps were placed 1 cm apart along the edge of the mesh to hold it against the abdominal wall. At the end of this, it was noted that the mesh was well positioned over the hernial defect. 20 cc of saline mixed with 20cc of Exparel mixed with 20cc of 0.5% Marcaine was infiltrated around the incisions. All ports were removed under direct visualization and there was no bleeding noted from the port sites. The external oblique aponeurosis was approximated at RLQ port site using figure of eight 0 Vicryl suture. The subcutaneous tissue was approximated using 3-0 Vicryl sutures. The skin at all 3 port sites was closed using subcuticular 4-0 Monocryl suture. The stab incisions and the port sites were covered with Dermabond. Abdominal binder was placed at the end of the procedure and the patient was extubated and transferred to recovery room in stable condition.
--- NOTE | 2021-03-27 15:54 | ANE.PACU2 ---
Inpatient post-anesthesia follow up: Airway intact: Yes Vital signs: Temperature 98.3 F Pulse Rate 106 Respiratory Rate 18 Blood Pressure 158/66 Pulse Oximetry 91 Oxygen Delivery Me thod Nasal Cannula Oxygen Flow Rate 3 Fraction of Inspir ed Oxygen Hydration adequate: Yes Nausea and vomiting: No Pain level: 3 Mental status: Baseline
--- NOTE | 2021-03-27 16:09 | SUR.PHASEI ---
Pt rated her pain twice at a 5 on a scale of 0-10 with 10 being the worst. She declined pain medication both times.
[2021-03-27] MEDS: D5-NS 0.45% + KCL 20 mEq 20 MEQ/1,000 ML BAG 100 MEQ IV (17:25)
[2021-03-27] MEDS: sennosides-docusate Tablet 1 TAB PO (17:28)
[2021-03-27] MEDS: lactulose oral liq 20 gm/30 mL UDC 10 GM PO (17:28)
[2021-03-27] MEDS: HYDROcodone-acetaminophen 5-325 mg Tablet 1 TAB PO (18:07)
[2021-03-27 18:59] LABS: Troponin 5 6HR 22.95 ng/L (0-10)
[2021-03-27 19:01] LABS: Phosphorus 2.8 mg/dL (2.5-4.5)
[2021-03-27 19:02] LABS: Lactic Acid level (Lactate) 2.3 mmol/L (0.5-2.2)
[2021-03-28] VITALS (11 sets, daily range): BP systolic 156–188; BP diastolic 73–86; PULSE 74–96; RESP 16–22; TEMP 36.6–37.7; O2SAT 92–97
[2021-03-28] MEDS: HYDROcodone-acetaminophen 5-325 mg Tablet 1 TAB PO ×3 (03:19→20:57)
[2021-03-28] MEDS: piperacillin-tazobactam 3.375 GM in sodium chloride 0.9% (plus) 50 ML IV ×3 (03:20→20:56)
[2021-03-28] MEDS: lactulose oral liq 20 gm/30 mL UDC 10 GM PO ×2 (03:21→16:03)
[2021-03-28] MEDS: HYDROmorphone 1 mg/mL INJ 1 mL 0.4 MG IVP ×3 (03:30→20:28)
[2021-03-28] MEDS: famotidine 20 mg/2 mL INJ IVP (03:30)
[2021-03-28 06:31] LABS: Basophils # 0.1 10^3/uL (0.0-0.1); Basophils % 0.2 %; Hematocrit 40.9 % (37.0-47.0); Hemoglobin 12.9 g/dL (11.5-15.3); Lymphocytes # 0.8 10^3/uL (0.8-4.8); Lymphocytes % 3.7 %; Mean Corpuscular HGB Conc 31.5 g/dL (30.0-36.0); Mean Corpuscular Hemoglobin 29.7 pg (28.0-34.0); Mean Corpuscular Volume 94.2 fl (81-99); Mean Platelet Volume 12.8 fL (7.4-10.4); Monocytes # 1.3 10^3/uL (0.2-0.9); Monocytes % 6.2 %; Neutrophils # 19.11 10^3/uL (1.8-7.7); Neutrophils % 89.5 %; Nucleated Red Blood Cells % 0 %; Platelet Count 142 10^3/cmm (130-400); Red Blood Count 4.34 10^6/uL (4.1-5.3); Red Cell Distribution Width 14.5 % (12.1-15.1); White Blood Count 21.4 10^3/uL (4.0-10.0)
[2021-03-28] MEDS: sennosides-docusate Tablet 1 TAB PO ×2 (08:05→16:03)
[2021-03-28] MEDS: pantoprazole 40 mg SDV IVP (08:05)
[2021-03-28] MEDS: D5-NS 0.45% + KCL 20 mEq 20 MEQ/1,000 ML BAG 100 MEQ IV ×2 (08:19→20:57)
--- NOTE | 2021-03-28 08:20 | USCV_ITS ---
Phoebe Yaa Age: 70 Gender: F : 1950 Exam Date: 03/28/2021 09:32 Ordering Phys: Jasmeet Peterson MD Technologist: Asha Gamble [place] [facility] [place]ication: POST OP GB BRADYCARDIA BP: 181 / 74 HR: 78 Rhythm: Sinus Technical Quality: Technically difficult study MEASUREMENTS (Male / Female) Normal Values 2D ECHO LV Diastolic Diameter PLAX 3.4 cm 4.2 - 5.9 / 3.9 - 5.3 cm LV Systolic Diameter PLAX 1.9 cm LV Chamber Size 3.4 cm IVS Diastolic Thickness 0.9 cm 0.6 - 1.0 / 0.6 - 0.9 cm IVS Systolic Thickness 1.1 cm LVPW Diastolic Thickness 1.2 cm 0.6 - 1.0 / 0.6 - 0.9 cm LVPW Systolic Thickness 1.4 cm RV Chamber Size 2.2 cm LVOT Diameter 2.1 cm LV Ejection Fraction 2D Teich 78.1 % LA Diameter 3.1 cm LA Width 3.9 cm LA Height 3.9 cm RA Width 3.1 cm RA Height 4.0 cm Aorta at Sinotubular Diameter 3.0 cm M-MODE Aortic Annulus Diameter 2.9 cm LA Ao Ratio MM 1.2 MV E Point Septal Separation 0.6 cm DOPPLER AV Peak Velocity 154.0 cm/s LVOT Peak Velocity 114.0 cm/s AV Area Cont Eq vti 2.4 cm squared AV Area Cont Eq pk 2.6 cm squared MV Area PHT 5.1 cm squared Mitral E to A Ratio 1.1 MV E' Velocity 59.0 cm/s Mitral E to MV E' Ratio 11.1 Mitral E to LV E' Lateral Ratio 10.9 Mitral E to LV E' Septal Ratio 11.3 TR Peak Velocity 109.9 cm/s TR Peak Gradient 4.8 mmHg TR Mean Velocity 85.9 cm/s TR Mean Gradient 3.3 mmHg TR Velocity Time Integral 19.8 cm TV Peak E Velocity 41.0 cm/s Right Atrial Pressure 3.0 mmHg Pulmonary Artery Systolic Pressu 7.8 mmHg PV Peak Velocity 78.0 cm/s RV Acceleration Time 0.2 s RV Ejection Time 0.3 s RV AcT/ET 0.5 FINDINGS Left Ventricle Normal left ventricular size and systolic function, EF 65%.no regional wall motion abnormalities. Grade I/IV diastolic dysfunction (abnormal relaxation filling pattern), normal to mildly elevated filling pressures. Right Ventricle The right ventricle is normal in size and function. Right Atrium The right atrium is normal in size. Left Atrium The left atrium is normal in size. Mitral Valve Mild mitral valve regurgitation. Aortic Valve Thickened aortic valve. Tricuspid Valve No gross abnormalities noted Pulmonic Valve Pulmonic valve not well visualized. Pericardium Normal pericardium without effusion. Aorta Normal ascending aorta dimension. CONCLUSIONS Normal left ventricular size and systolic function, EF 65%.no regional wall motion abnormalities. Grade I/IV diastolic dysfunction (abnormal relaxation filling pattern), normal to mildly elevated filling pressures. Mild mitral valve regurgitation. Possibly normal pulmonary artery pressure. The estimated pressure could be misleading because of the poor Doppler signals Thickened aortic valve. There are no intracardiac masses. There is no pericardial effusion. No previous study is available for comparison. Dr Veronica Howard MD [facility] (Electronically Signed) Final Date: 28 March 2021 18:17 S
[2021-03-28] MEDS: ondansetron 2 mg/ML SDV 2 mL 4 MG IVP ×2 (10:00→16:02)
[2021-03-28 10:47] LABS: Lactate (Lactic Acid level) 2.3 mmol/L (0.5-2.2)
[2021-03-28 10:47] LABS: Anion Gap 19.9 (5-19); Blood Urea Nitrogen 11 mg/dL (8-23); C Reactive Protein 11.8 mg/L (0.0-4.9); Carbon Dioxide 18 mmol/L (22-29); Chloride 108 mmol/L (98-107); Creatinine Clr Calc Pharmacy 81.9304; Glomerular Filtration Rate 83.2 mL/min (90-130); Glucose 129 mg/dL (65-115); Magnesium 1.8 mg/dL (1.7-2.3); Osmolality Calculated 295 mOsm/kg (285-295); Potassium 3.9 mmol/L (3.5-5.1); Sodium 142 mmol/L (136-145)
--- NOTE | 2021-03-28 11:39 | P.PN_ITS ---
Subjective Subjective: Interval history: Today patient was feeling much better, no emesis, NG was clamped, she has good bowel sounds, she is endorsing burping, has not passed any flatus yet, no BM Vitals/I&O/Wt Last Vital Signs Temp 98 F 03/28/21 08:00 Pulse 76 03/28/21 09:11 Resp 17 03/28/21 09:11 BP 156/75 03/28/21 08:00 Pulse Ox 94 03/28/21 09:11 03/27/21 03/28/21 03/28/21 22:59 06:59 14:59 Intake Total 1000 / 2550 704.667 / 3254.667 395.333 / 395.333 Output Total 320 / 320 550 / 870 Balance 680 / 2230 154.667 / 2384.667 395.333 / 395.333 Weight last 48 hrs Weight 77.111 kg Weight 77.111 kg Physical Exam Narrative: EXAM NARRATIVE: Patient was resting comfortably in her recliner NG has been clamped Abdomen is soft, bowel sounds sluggish, present in all quadrants Patient is awake and alert Nonfocal exam Saturating well on room air Urinary Catheter Management^: Walton: Cath Placed During This Visit: yes Reason for Continuing Indwelling Catheter: Perioperative Use in Selected Surgeries Urinary Catheter Date of Insertion: 03/27/21 Urinary Catheter Time of Insertion: 09:19 Data : 03/28/21 05:25 03/28/21 10:14 Micro: Microbiology 03/27/21 06:15 Blood Culture - Preliminary Blood NEGATIVE TO DATE 03/27/21 05:50 Blood Culture - Preliminary Blood A&P Assessment and plan (1) Incarcerated ventral hernia: Status: Acute (2) Metabolic acidosis: Status: Acute (3) SBO (small bowel obstruction): Status: Acute (4) Abdominal wall hernia: Status: Acute (5) GERD (gastroesophageal reflux disease): Status: Acute Qualifiers: Esophagitis presence: without esophagitis Qualified Code(s): K21.9 - Gastro-esophageal reflux disease without esophagitis (6) Anxiety: Status: Acute (7) Bradycardia: Status: Acute (8) Obstructive sleep apnea: Status: Acute Additional A&P Information Incarcerated ventral hernia SBO Status post surgery on 03/27 Postop day 1 No perioperative or postoperative complications NG has been clamped, bowel sounds present, did discuss with Dr. Garrett, today plan is to discontinue nasogastric tube, continue lactulose and bowel regimen, her abdomen is soft, will keep her n.p.o. until diet advanced by general surgery Nurse updated Leukocytosis noted however hemodynamically she is stable, CRP 11 I do believe this is just a leukemoid reaction, will obtain lactic acid Continue Zosyn Continue D5 half-normal saline IV fluid resuscitation for now Full code N.p.o. 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
[2021-03-28 11:48] LABS: Reflex Lactate Order REFLEX LACTIC ORDERD
[2021-03-28] MEDS: enoxaparin 40 mg/0.4 mL Syringe SUBCUT (11:54)
[2021-03-28] MEDS: diphenhydrAMINE 50 mg/mL SDV 1mL 12.5 MG IVP (11:56)
[2021-03-28 13:44] LABS: Lactic Acid level (Lactate) 1.2 mmol/L (0.5-2.2)
[2021-03-28] MEDS: acetaminophen 325 mg Tablet 650 MG PO (14:11)
--- NOTE | 2021-03-28 14:26 | PM.PN ---
Subjective Subjective: Interval history: Patient denies any vomiting, pain is reasonably well controlled, no flatus or BM. She felt a bit nauseated after walking Vitals/I&O/Wt Last Vital Signs Temp 98.1 F 03/28/21 12:00 Pulse 74 03/28/21 12:00 Resp 20 H 03/28/21 12:00 BP 169/78 03/28/21 12:00 Pulse Ox 93 03/28/21 12:00 03/27/21 03/28/21 03/28/21 22:59 06:59 14:59 Intake Total 1000 / 3254.667 704.667 / 3254.667 395.333 / 395.333 Output Total 320 / 870 550 / 870 450 / 450 Balance 680 / 2384.667 154.667 / 2384.667 -54.667 / -54.667 Weight last 48 hrs Weight 170 lb Weight 170 lb Physical Exam Narrative: EXAM NARRATIVE: Abdomen: Soft, minimally tender, nondistended, incision clean dry and intact Urinary Catheter Management^: Walton: Cath Placed During This Visit: yes, but has since been removed by the nurse Reason for Continuing Indwelling Catheter: Decision to DC Catheter Urinary Catheter Date of Insertion: 03/27/21 Urinary Catheter Time of Insertion: 09:19 Date Urinary Catheter Removed: 03/28/21 Time Urinary Catheter Discontinued: 14:17 Data : 03/28/21 05:25 03/28/21 10:14 Micro: Microbiology 03/27/21 06:15 Blood Culture - Preliminary Blood NEGATIVE TO DATE 03/27/21 05:50 Blood Culture - Preliminary Blood A&P Assessment and plan (1) History of incisional hernia repair: 70-year-old female status post laparoscopic repair of incarcerated spigelian hernia, overall doing well. Awaiting return of bowel function. Start clear liquid diet DC NG tube DC Walton Continue lactulose and senna Ambulate ad vinita. 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
[2021-03-28] MEDS: lidocaine 2% viscous 1.667 ML, diphenhydrAMINE oral liq 4.165 MG, aluminum-mag hydrox-s... MUCOUS MEM (16:28)
[2021-03-29] VITALS (9 sets, daily range): BP systolic 171–195; BP diastolic 75–81; PULSE 66–82; RESP 17–20; TEMP 36.5–36.9; O2SAT 94–97
[2021-03-29] MEDS: HYDROcodone-acetaminophen 5-325 mg Tablet 1 TAB PO ×2 (03:03→17:13)
[2021-03-29] MEDS: HYDROmorphone 1 mg/mL INJ 1 mL 0.4 MG IVP ×2 (04:19→21:41)
[2021-03-29] MEDS: lactulose oral liq 20 gm/30 mL UDC 10 GM PO ×2 (04:28→17:13)
[2021-03-29] MEDS: piperacillin-tazobactam 3.375 GM in sodium chloride 0.9% (plus) 50 ML IV ×3 (04:29→21:33)
[2021-03-29] MEDS: D5-NS 0.45% + KCL 20 mEq 20 MEQ/1,000 ML BAG 100 MEQ IV (04:33)
[2021-03-29 05:18] LABS: Lactate (Lactic Acid level) 1.6 mmol/L (0.5-2.2)
[2021-03-29 05:29] LABS: Procalcitonin 0.06 ng/mL (0-0.5)
[2021-03-29 05:40] LABS: Anion Gap 15.4 (5-19); Blood Urea Nitrogen 8 mg/dL (8-23); Calcium 7.8 mg/dL (8.5-10.5); Carbon Dioxide 21 mmol/L (22-29); Chloride 105 mmol/L (98-107); Creatinine Clr Calc Pharmacy 81.9304; Glomerular Filtration Rate 122.7 mL/min (90-130); Glucose 102 mg/dL (65-115); Osmolality Calculated 285 mOsm/kg (285-295); Potassium 3.4 mmol/L (3.5-5.1); Sodium 138 mmol/L (136-145)
[2021-03-29] MEDS: pantoprazole 40 mg SDV IVP (08:15)
[2021-03-29] MEDS: sennosides-docusate Tablet 1 TAB PO ×2 (08:15→17:13)
[2021-03-29] MEDS: acetaminophen 325 mg Tablet 650 MG PO (08:15)
[2021-03-29 09:04] LABS: Basophils # 0.1 10^3/uL (0.0-0.1); Basophils % 0.4 %; Eosinophils % 0.3 %; Hematocrit 37.8 % (37.0-47.0); Hemoglobin 12.2 g/dL (11.5-15.3); Lymphocytes # 1.1 10^3/uL (0.8-4.8); Lymphocytes % 7.3 %; Mean Corpuscular HGB Conc 32.3 g/dL (30.0-36.0); Mean Corpuscular Hemoglobin 29.9 pg (28.0-34.0); Mean Corpuscular Volume 92.6 fl (81-99); Mean Platelet Volume 11.7 fL (7.4-10.4); Monocytes # 1.1 10^3/uL (0.2-0.9); Monocytes % 7.5 %; Neutrophils # 12.64 10^3/uL (1.8-7.7); Neutrophils % 84.1 %; Nucleated Red Blood Cells % 0 %; Platelet Count 180 10^3/cmm (130-400); Red Blood Count 4.08 10^6/uL (4.1-5.3); Red Cell Distribution Width 13.8 % (12.1-15.1)
[2021-03-29] MEDS: enoxaparin 40 mg/0.4 mL Syringe SUBCUT (12:57)
--- NOTE | 2021-03-29 13:41 | P.PN_ITS ---
Subjective Subjective: Interval history: Seen this morning. She is complaining of abdominal pain as soon as she ate. She also complains of heartburn. She says she took her omeprazole as well but does not feel better. Physical therapy present in the room and she is wanting to walk with physical therapy. Abdomen is soft. Vitals/I&O/Wt Last Vital Signs Temp 98.5 F 03/29/21 11:12 Pulse 68 03/29/21 11:12 Resp 18 03/29/21 11:12 BP 178/75 03/29/21 11:12 Pulse Ox 94 03/29/21 11:12 03/28/21 03/29/21 03/29/21 22:59 06:59 14:59 Intake Total 1465 / 1860.333 445 / 2305.333 290 / 290 Balance 1465 / 1410.333 445 / 1855.333 290 / 290 Weight last 48 hrs Weight 77.111 kg Physical Exam Narrative: EXAM NARRATIVE: General: Alert oriented x3, patient seen _laying in bed complaining of abdominal pain and heartburn however is wanting to get up and walk around with physical therapy. HEENT: Normocephalic, atraumatic, EOMI, breathing normally. Normal respiratory effort no acute distress. Cardio: Regular rate rhythm, normal S1-S2, no gross murmurs. Respiratory: Good bilateral air entry, no wheezes no rhonchi appreciated GI: Abdomen soft, nontender, nondistended, bowel sounds +, no rebound tenderness or guarding. Extremities: Pulses 2+, no edema, no cyanosis Urinary Catheter Management^: Walton: Cath Placed During This Visit: yes, but has since been removed by the nurse Reason for Continuing Indwelling Catheter: Decision to DC Catheter Urinary Catheter Date of Insertion: 03/27/21 Urinary Catheter Time of Insertion: 09:19 Date Urinary Catheter Removed: 03/28/21 Time Urinary Catheter Discontinued: 14:17 Data : 03/29/21 08:47 03/29/21 04:35 Micro: Microbiology 03/27/21 06:15 Blood Culture - Preliminary Blood Staphylococcus sp coag neg Strep species, alpha hemolytic 03/27/21 05:50 Blood Culture - Preliminary Blood Staphylococcus sp coag neg Strep species, alpha hemolytic A&P Assessment and plan (1) Incarcerated ventral hernia: Status: Acute (2) Metabolic acidosis: Status: Acute (3) SBO (small bowel obstruction): Status: Acute (4) Abdominal wall hernia: Status: Acute (5) GERD (gastroesophageal reflux disease): Status: Acute (6) Anxiety: Status: Acute (7) Bradycardia: Status: Acute (8) Obstructive sleep apnea: Status: Acute Additional A&P Information #Incarcerated ventral hernia #SBO Status post surgery on 03/27 Postop day 2 No perioperative or postoperative complications NG has been removed. Bowel sounds are present. She has been placed on lactulose and bowel regimen. She was placed on clear liquid diet but after taking a little bit she developed abdominal pain. Will defer to Dr. Garrett for advancing diet to full liquids. Leukocytosis noted however hemodynamically she is stable, CRP 11 I do believe this is just a leukemoid reaction, lactic acid is normal. Continue Zosyn Continue D5 half-normal saline IV fluid resuscitation for now Full code Clear liquids. DVT prophylaxis Lovenox Attestations Medical Necessity Statement*: Greater than 24 to 48 hours today. Patient not really tolerating clear liquids at this time. Coding Level of Care Code Acute Double End Production Grinder for Chg Fwd Diagnoses Incarcerated ventral hernia K43.6 Metabolic acidosis E87.2 SBO (small bowel obstruction) K56.609 Abdominal wall hernia K43.9 GERD (gastroesophageal reflux disease) K21.9 Anxiety F41.9 Bradycardia R00.1 Obstructive sleep apnea G47.33
--- NOTE | 2021-03-29 15:49 | P.PN_ITS ---
Subjective Subjective: Interval history: Denies significant abdominal pain, nausea, vomiting, passing flatus, no BM yet. She is ambulating well Vitals/I&O/Wt Last Vital Signs Temp 98.5 F 03/29/21 11:12 Pulse 68 03/29/21 11:12 Resp 18 03/29/21 11:12 BP 178/75 03/29/21 11:12 Pulse Ox 94 03/29/21 11:12 03/29/21 03/29/21 03/29/21 06:59 14:59 22:59 Intake Total 445 / 2305.333 290 / 290 Balance 445 / 1855.333 290 / 290 Weight last 48 hrs Weight 170 lb Physical Exam Narrative: EXAM NARRATIVE: Abdomen: Soft, nondistended, normally tender, incision clean dry and intact Urinary Catheter Management^: Walton: Cath Placed During This Visit: yes, but has since been removed by the nurse Reason for Continuing Indwelling Catheter: Decision to DC Catheter Urinary Catheter Date of Insertion: 03/27/21 Urinary Catheter Time of Insertion: 09:19 Date Urinary Catheter Removed: 03/28/21 Time Urinary Catheter Discontinued: 14:17 Data : 03/29/21 08:47 03/29/21 04:35 Micro: Microbiology 03/27/21 06:15 Blood Culture - Preliminary Blood Staphylococcus sp coag neg Strep species, alpha hemolytic 03/27/21 05:50 Blood Culture - Preliminary Blood Staphylococcus sp coag neg Strep species, alpha hemolytic A&P Assessment and plan (1) History of incisional hernia repair: 70-year-old female status post laparoscopic repair of incarcerated spigelian hernia, overall doing well. Awaiting return of bowel function. Advance to full liquid diet Lovenox for DVT prophylaxis Protonix for GI prophylaxis Continue lactulose and senna Ambulate ad vinita. 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
[2021-03-29] MEDS: sodium chloride 0.9% 1,000 ML 75 ML IV (16:29)
[2021-03-30] VITALS (9 sets, daily range): BP systolic 157–198; BP diastolic 67–83; PULSE 65–83; RESP 16–18; TEMP 36.6–36.9; O2SAT 94–98
--- NOTE | 2021-03-30 01:02 | PC.NURSE ---
1920 Up walking in espinosa with IV pump infusing. Denies requests.
--- NOTE | 2021-03-30 01:03 | PC.NURSE ---
2000 Up to bathroom. Pt amb without assist.
--- NOTE | 2021-03-30 01:04 | PC.NURSE ---
2200 Sitting up in chair. No distress.
--- NOTE | 2021-03-30 01:05 | PC.NURSE ---
2330 Amb in espinosa. Reports right hip and neck pain due to chronic arthritis. Heated blanket given to apply to areas.
[2021-03-30] MEDS: HYDROcodone-acetaminophen 5-325 mg Tablet 1 TAB PO ×2 (02:04→20:26)
--- NOTE | 2021-03-30 02:17 | PC.NURSE ---
0200 Pt amb in espinosa. Reports abd pain 4:10. Pain med given as ordered.
[2021-03-30] MEDS: piperacillin-tazobactam 3.375 GM in sodium chloride 0.9% (plus) 50 ML IV ×3 (04:04→20:25)
[2021-03-30] MEDS: lactulose oral liq 20 gm/30 mL UDC 10 GM PO (04:04)
[2021-03-30 05:00] LABS: Basophils # 0.1 10^3/uL (0.0-0.1); Basophils % 0.4 %; Eosinophils # 0.1 10^3/uL (0.0-0.8); Eosinophils % 0.6 %; Hematocrit 37.3 % (37.0-47.0); Hemoglobin 12.2 g/dL (11.5-15.3); Lymphocytes # 1.4 10^3/uL (0.8-4.8); Lymphocytes % 9.7 %; Mean Corpuscular HGB Conc 32.7 g/dL (30.0-36.0); Mean Corpuscular Hemoglobin 29.8 pg (28.0-34.0); Monocytes # 1.1 10^3/uL (0.2-0.9); Neutrophils # 11.37 10^3/uL (1.8-7.7); Neutrophils % 80.9 %; Nucleated Red Blood Cells % 0 %; Platelet Count 178 10^3/cmm (130-400); Red Cell Distribution Width 13.3 % (12.1-15.1); White Blood Count 14.1 10^3/uL (4.0-10.0)
[2021-03-30 05:19] LABS: Blood Urea Nitrogen 8 mg/dL (8-23); Carbon Dioxide 24 mmol/L (22-29); Chloride 102 mmol/L (98-107); Creatinine Clr Calc Pharmacy 81.9304; Glomerular Filtration Rate 122.7 mL/min (90-130); Glucose 95 mg/dL (65-115); Magnesium 1.7 mg/dL (1.7-2.3); Osmolality Calculated 286 mOsm/kg (285-295); Sodium 139 mmol/L (136-145)
[2021-03-30 05:26] LABS: Anion Gap 16.2 (5-19); Potassium 3.2 mmol/L (3.5-5.1)
--- NOTE | 2021-03-30 06:37 | PC.NURSE ---
BP elevated. Pt reports she has not had some of her home meds and she thinks this is why it is high this am. Will pass on in report to the oncoming nurse to discuss with when rounds.
[2021-03-30] MEDS: pantoprazole 40 mg SDV IVP (07:51)
[2021-03-30] MEDS: acetaminophen 325 mg Tablet 650 MG PO (07:52)
[2021-03-30] MEDS: sennosides-docusate Tablet 1 TAB PO (07:52)
--- NOTE | 2021-03-30 07:56 | USCV_ITS ---
Yaa Sandhu Age: 70 Gender: F : 1950 Exam Date: 03/30/2021 09:26 Ordering Phys: aL De La Cruz MD Technologist: ALICJA [place] [facility] [place]ication: f/u echo of 03/28/2021. c/o sepsis. BP: 198 / 74 HR: 87 Rhythm: Sinus Technical Quality: Adequate MEASUREMENTS (Male / Female) Normal Values 2D ECHO LV Diastolic Diameter PLAX 5.0 cm 4.2 - 5.9 / 3.9 - 5.3 cm LV Systolic Diameter PLAX 3.0 cm IVS Diastolic Thickness 1.0 cm 0.6 - 1.0 / 0.6 - 0.9 cm IVS Systolic Thickness 1.8 cm LVPW Diastolic Thickness 1.1 cm 0.6 - 1.0 / 0.6 - 0.9 cm LVPW Systolic Thickness 1.7 cm LVOT Diameter 1.8 cm LV Ejection Fraction 2D Teich 70.2 % LV Ejection Fraction MOD 2C 71.6 % LV Ejection Fraction 2C AL 72.2 % LA Diameter 3.6 cm LA Width 4.1 cm LA Height 4.9 cm RA Width 3.1 cm RA Height 4.1 cm Aorta at Sinotubular Diameter 2.4 cm DOPPLER AV Peak Velocity 124.0 cm/s LVOT Peak Velocity 156.0 cm/s AV Area Cont Eq vti 2.8 cm squared AV Area Cont Eq pk 3.0 cm squared FINDINGS Left Ventricle Normal left ventricular cavity size. Normal left ventricular systolic function. No regional wall motion abnormalities. Left ventricular ejection fraction is estimated at 65 %. Right Ventricle The right ventricle is normal in size and function. RVSP could not be calculated due to incomplete tricuspid regurgitation velocity profile. Right Atrium The right atrium is normal in size. Left Atrium The left atrium is normal in size. Mitral Valve Moderately thickened mitral valve. No mitral valve stenosis. Mild mitral valve regurgitation. Aortic Valve Moderate aortic valve calcification. Mild aortic valve stenosis, mean gradient 2.3 mmHg, BRANDT 2.8 cm squared. Mild aortic valve regurgitation. Tricuspid Valve Structurally normal tricuspid valve without significant stenosis or regurgitation. Pulmonic Valve Structurally normal pulmonic valve without significant stenosis. There is no pulmonic regurgitation. Pericardium Normal pericardium without effusion. Aorta Normal ascending aorta dimension. CONCLUSIONS 1-Normal left ventricular cavity size. Normal left ventricular systolic function. No regional wall motion abnormalities. Left ventricular ejection fraction is estimated at 65 %. 2-Moderately thickened mitral valve. No mitral valve stenosis. Mild mitral valve regurgitation. 3-Moderate aortic valve calcification. Mild aortic valve stenosis, mean gradient 2.3 mmHg, BRANDT 2.8 cm squared. Mild aortic valve regurgitation. 4-The right ventricle is normal in size and function. RVSP could not be calculated due to incomplete tricuspid regurgitation velocity profile. 5-No significant change since the prior echocardiogram study of 03/28/2021. Jasmeet Barrios MD (Electronically Signed) Final Date: 30 March 2021 12:38 S
--- NOTE | 2021-03-30 07:57 | CT_ITS ---
WS: [id number] CT FACIAL BONES with contrast. HISTORY: rule out dental abscess or oral pathology TECHNIQUE: Images obtained from the supraorbital location through the mandible. Soft tissue and bone windows are reviewed. Coronal and sagittal reformats have also been submitted. DLP: 774.[address] scans at [facility] use at least one of these dose optimization techniques: automated e xposure control; mA and/or kV adjustment per patient size (includes targeted exams where dose is matc hed to clinical indication); or iterative reconstruction. COMPARISON: None available. Contrast: Omnipaque 300; 95 mL IV. Lucency around the LEFT central incisor. There is a space where the first molar would be present. The second LEFT maxillary molar is present with destruction of the bone. There is a small amount of air adjacent to the LEFT second molar and soft tissue thickening. There is slight enhancement but no absc ess identified. Focal area of dental caries involving the second bicuspid on the RIGHT. No definite o bstruction of the bone or abnormal enhancement within the mandible. There is artifact from patient's dental implants on the LEFT. No subperiosteal abscess is identified. Parapharyngeal soft tissues are normal with no enhancement. N o air-fluid levels within the visualized sinuses. CT/CT facial bones w con [id number] IMPRESSION: 1. No subperiosteal abscess identified. 2. There is significant dental caries with loss of the normal bone cortex. Mos t significant changes involve the LEFT maxillary second molar. Additional more minor changes involving the LEFT central incisor.
[2021-03-30] MEDS: iohexol 300 mg/mL 100 mL Btl IV (10:48)
--- NOTE | 2021-03-30 11:17 | PC.SOCIAL ---
Pg 2 IMM Explained to pt Pg 2 IMM. No questions voiced. Provided pt a copy. Initialed, dated, & timed a copy & placed in chart.
[2021-03-30] MEDS: potassium chloride oral liq 20 mEq/15 mL UDC 40 MEQ PO (11:33)
[2021-03-30] MEDS: lactulose oral liq 20 gm/30 mL UDC 15 GM PO ×2 (11:33→20:25)
[2021-03-30] MEDS: CLONazepam 1 mg Tablet PO ×2 (11:33→17:10)
[2021-03-30] MEDS: cefTRIAXone 2,000 MG in sodium chloride 0.9% (plus) 50 ML 100 MG IV (11:34)
--- NOTE | 2021-03-30 12:34 | P.PN_ITS ---
Subjective Subjective: Interval history: Seen this morning. Patient states that she has the urge to have a bowel movement but has not had one yet. She also states that she supposed to have her dental work done and she may have a dental infection but she is not sure. She does have an appointment with her dentist soon. She would like her clonazepam to be restarted. She also states she has a family history of hypertension. Vitals/I&O/Wt Last Vital Signs Temp 97.9 F 03/30/21 11:25 Pulse 76 03/30/21 11:25 Resp 17 03/30/21 11:25 BP 189/77 03/30/21 11:25 Pulse Ox 96 03/30/21 11:25 03/29/21 03/30/21 03/30/21 22:59 06:59 14:59 Intake Total 1330 / 1620 1050 / 2670 290 / 290 Balance 1330 / 1620 1050 / 2670 290 / 290 Physical Exam Narrative: EXAM NARRATIVE: General: Alert oriented x3, patient seen sitting up in recliner appearing comfortable. HEENT: Normocephalic, atraumatic, EOMI, breathing normally. Normal respiratory effort no acute distress. Cardio: Regular rate rhythm, normal S1-S2, no gross murmurs. Respiratory: Good bilateral air entry, no wheezes no rhonchi appreciated GI: Abdomen soft, nontender, nondistended, bowel sounds +, no rebound tenderness or guarding. Extremities: Pulses 2+, no edema, no cyanosis Urinary Catheter Management^: Walton: Cath Placed During This Visit: yes, but has since been removed by the nurse Reason for Continuing Indwelling Catheter: Decision to DC Catheter Urinary Catheter Date of Insertion: 03/27/21 Urinary Catheter Time of Insertion: 09:19 Date Urinary Catheter Removed: 03/28/21 Time Urinary Catheter Discontinued: 14:17 Data : 03/30/21 04:42 03/30/21 04:42 Micro: Microbiology 03/30/21 08:47 Blood Culture - Preliminary Blood SPECIMEN COLLECTED 03/30/21 08:44 Blood Culture - Preliminary Blood SPECIMEN COLLECTED 03/27/21 06:15 Blood Culture - Preliminary Blood Staphylococcus sp coag neg Strep species, alpha hemolytic 03/27/21 05:50 Blood Culture - Preliminary Blood Staphylococcus sp coag neg Strep species, alpha hemolytic A&P Assessment and plan (1) Incarcerated ventral hernia: Status: Acute (2) Metabolic acidosis: Status: Acute (3) SBO (small bowel obstruction): Status: Acute (4) Abdominal wall hernia: Status: Acute (5) GERD (gastroesophageal reflux disease): Status: Acute (6) Anxiety: Status: Acute (7) Bradycardia: Status: Acute (8) Obstructive sleep apnea: Status: Acute Additional A&P Information #Incarcerated ventral hernia #SBO Status post surgery on 03/27 Postop day 3 No perioperative or postoperative complications NG has been removed. Bowel sounds are present. She has been placed on lactulose and bowel regimen. She has been placed on GI soft diet today. She has been cleared from surgery standpoint to be discharged. Leukocytosis noted however hemodynamically she is stable, CRP 11 Blood cultures are positive for alphahemolytic Streptococcus. I will repeat blood cultures today. Patient on ceftriaxone 2 g every 12 I will DC IV fluids today. We will keep an eye on blood pressure. If she remains consistently high after DC IV fluids and addition of clonazepam I will consider starting her on amlodi pine 10 mg daily. We will check face CT to assess for dental abscess. Full code Clear liquids. DVT prophylaxis Lovenox Attestations Medical Necessity Statement*: Greater than 24-hour stay. Has positive blood cultures. Coding Level of Care Code Acute Tomography Technologist for Tio Choi Diagnoses Incarcerated ventral hernia K43.6 Metabolic acidosis E87.2 SBO (small bowel obstruction) K56.609 Abdominal wall hernia K43.9 GERD (gastroesophageal reflux disease) K21.9 Anxiety F41.9 Bradycardia R00.1 Obstructive sleep apnea G47.33
[2021-03-30] MEDS: amlodipine 10 mg Tablet PO (13:25)
[2021-03-30] MEDS: enoxaparin 40 mg/0.4 mL Syringe SUBCUT (13:25)
[2021-03-30] MEDS: sodium chloride 0.9% 1,000 ML 75 ML IV (13:27)
--- NOTE | 2021-03-30 16:13 | PM.PN ---
Subjective Subjective: Interval history: Patient denies significant abdominal pain, no nausea or vomiting, tolerating GI soft diet, passing flatus, no BM Vitals/I&O/Wt Last Vital Signs Temp 98.3 F 03/30/21 15:35 Pulse 79 03/30/21 15:35 Resp 17 03/30/21 15:35 BP 186/78 03/30/21 15:35 Pulse Ox 96 03/30/21 15:35 03/30/21 03/30/21 03/30/21 06:59 14:59 22:59 Intake Total 1050 / 2670 580 / 580 Balance 1050 / 2670 580 / 580 Physical Exam Narrative: EXAM NARRATIVE: Abdomen: Soft, less distended, minimally tender, incision clean dry and intact Urinary Catheter Management^: Walton: Cath Placed During This Visit: yes, but has since been removed by the nurse Reason for Continuing Indwelling Catheter: Decision to DC Catheter Urinary Catheter Date of Insertion: 03/27/21 Urinary Catheter Time of Insertion: 09:19 Date Urinary Catheter Removed: 03/28/21 Time Urinary Catheter Discontinued: 14:17 Data : 03/30/21 04:42 03/30/21 04:42 Micro: Microbiology 03/30/21 08:47 Blood Culture - Preliminary Blood SPECIMEN COLLECTED 03/30/21 08:44 Blood Culture - Preliminary Blood SPECIMEN COLLECTED 03/27/21 06:15 Blood Culture - Preliminary Blood Staphylococcus sp coag neg Strep species, alpha hemolytic 03/27/21 05:50 Blood Culture - Preliminary Blood Staphylococcus sp coag neg Strep species, alpha hemolytic A&P Assessment and plan (1) History of incisional hernia repair: 70-year-old female status post laparoscopic repair of incarcerated spigelian hernia, overall doing well. Awaiting return of bowel function. Advance to GI soft diet Lovenox for DVT prophylaxis Protonix for GI prophylaxis Continue lactulose and senna Ambulate ad v[place]a. Patient had positive blood cultures which is being further evaluated by the hospitalist service. CT face did not show any evidence of abscess, WBC has been trending down. Continue zosyn Status: Acute Attestations Medical Necessity Statement*: as per primary Coding Level of Care Code Acute Multimedia Author [facility] Diagnoses History of incisional hernia repair Z98.890; Z87.19
[2021-03-31] MEDS: cefTRIAXone 2,000 MG in sodium chloride 0.9% (plus) 50 ML 100 MG IV ×3 (00:28→20:02)
[2021-03-31 02:39] LABS: Basophils # 0.1 10^3/uL (0.0-0.1); Basophils % 0.4 %; Eosinophils # 0.2 10^3/uL (0.0-0.8); Eosinophils % 1.6 %; Hematocrit 37.5 % (37.0-47.0); Hemoglobin 12.3 g/dL (11.5-15.3); Lymphocytes # 1.6 10^3/uL (0.8-4.8); Lymphocytes % 13.7 %; Mean Corpuscular HGB Conc 32.8 g/dL (30.0-36.0); Mean Corpuscular Hemoglobin 30.2 pg (28.0-34.0); Mean Corpuscular Volume 92.1 fl (81-99); Mean Platelet Volume 11.5 fL (7.4-10.4); Monocytes # 1.1 10^3/uL (0.2-0.9); Monocytes % 9.1 %; Neutrophils # 8.93 10^3/uL (1.8-7.7); Neutrophils % 74.9 %; Nucleated Red Blood Cells % 0 %; Platelet Count 185 10^3/cmm (130-400); Red Blood Count 4.07 10^6/uL (4.1-5.3); Red Cell Distribution Width 13.4 % (12.1-15.1); White Blood Count 11.9 10^3/uL (4.0-10.0)
[2021-03-31 02:58] LABS: Anion Gap 13.1 (5-19); Blood Urea Nitrogen 6 mg/dL (8-23); Calcium 8.2 mg/dL (8.5-10.5); Carbon Dioxide 25 mmol/L (22-29); Chloride 103 mmol/L (98-107); Creatinine Clr Calc Pharmacy 81.9304; Glomerular Filtration Rate 122.7 mL/min (90-130); Glucose 100 mg/dL (65-115); Magnesium 1.9 mg/dL (1.7-2.3); Osmolality Calculated 284 mOsm/kg (285-295); Potassium 3.1 mmol/L (3.5-5.1); Sodium 138 mmol/L (136-145)
[2021-03-31] MEDS: HYDROcodone-acetaminophen 5-325 mg Tablet 1 TAB PO (03:27)
[2021-03-31] MEDS: piperacillin-tazobactam 3.375 GM in sodium chloride 0.9% (plus) 50 ML IV ×3 (03:27→20:42)
[2021-03-31 03:45] VITALS: BP 168/76; PULSE 64; RESP 16; TEMP 36.8; O2SAT 96
--- NOTE | 2021-03-31 04:03 | PC.NURSE ---
0315 pt reports headache and caffeine withdrawal. Medicated as prn ordered. marilou cola given for caffeine
[2021-03-31 08:00] VITALS: BP 185/77; PULSE 79; RESP 18; TEMP 36.7; O2SAT 96
[2021-03-31] MEDS: sennosides-docusate Tablet 1 TAB PO ×2 (09:20→17:36)
[2021-03-31] MEDS: lactulose oral liq 20 gm/30 mL UDC 15 GM PO ×2 (09:20→19:54)
[2021-03-31] MEDS: CLONazepam 1 mg Tablet PO ×2 (09:20→17:37)
[2021-03-31] MEDS: pantoprazole 40 mg SDV IVP (09:20)
--- NOTE | 2021-03-31 11:00 | P.PN_ITS ---
Subjective Subjective: Interval history: Patient seen this morning laying in bed appearing comfortable. Earlier she was seen walking down the hallway. Facial bone CT was done yesterday to rule out dental abscess and there is no evidence of abscess at this point. Initial blood cultures were positive for strep viridans. Final sensitivities pending. Repeat cultures are negative to date so far. Patient has had return of bowel function and had bowel movements overnight. She is also tolerating diet. Blood pressure still elevated despite addition of clonazepam and removal of IV fluids. I discussed with patient the possibility of starting blood pressure medication and she is agreeable. Vitals/I&O/Wt Last Vital Signs Temp 98.0 F 03/31/21 08:00 Pulse 79 03/31/21 08:00 Resp 18 03/31/21 08:00 BP 185/77 03/31/21 08:00 Pulse Ox 96 03/31/21 08:00 03/30/21 03/31/21 03/31/21 22:59 06:59 14:59 Intake Total 1215 / 1795 350 / 2145 160 / 160 Output Total 900 / 900 Balance 1215 / 1795 -550 / 1245 160 / 160 Physical Exam Narrative: EXAM NARRATIVE: General: Alert oriented x3, patient seen laying in bed today appearing very comfortable. HEENT: Normocephalic, atraumatic, EOMI, breathing normally. Normal respiratory effort no acute distress. Does have gum swelling present on the left side of mouth. Cardio: Regular rate rhythm, normal S1-S2, no gross murmurs. Respiratory: Good bilateral air entry, no wheezes no rhonchi appreciated GI: Abdomen soft, nontender, nondistended, bowel sounds +, no rebound tenderness or guarding. Extremities: Pulses 2+, no edema, no cyanosis Urinary Catheter Management^: Walton: Cath Placed During This Visit: yes, but has since been removed by the nurse Reason for Continuing Indwelling Catheter: Decision to DC Catheter Urinary Catheter Date of Insertion: 03/27/21 Urinary Catheter Time of Insertion: 09:19 Date Urinary Catheter Removed: 03/28/21 Time Urinary Catheter Discontinued: 14:17 Data : 03/31/21 02:13 03/31/21 02:13 Micro: Microbiology 03/30/21 08:44 Blood Culture - Preliminary Blood NEGATIVE TO DATE 03/30/21 08:47 Blood Culture - Preliminary Blood NEGATIVE TO DATE 03/27/21 06:15 Blood Culture - Preliminary Blood Staphylococcus epidermidis Viridans streptococcus group 03/27/21 05:50 Blood Culture - Preliminary Blood Staphylococcus epidermidis Viridans streptococcus group A&P Assessment and plan (1) Incarcerated ventral hernia: Status: Acute (2) Metabolic acidosis: Status: Acute (3) SBO (small bowel obstruction): Status: Acute (4) Abdominal wall hernia: Status: Acute (5) GERD (gastroesophageal reflux disease): Status: Acute (6) Anxiety: Status: Acute (7) Bradycardia: Status: Acute (8) Obstructive sleep apnea: Status: Acute Additional A&P Information #Incarcerated ventral hernia #SBO Status post surgery on 03/27 Postop day 4 No perioperative or postoperative complications Bowel function has returned. Cleared for discharge by surgery. Blood cultures are positive for alphahemolytic Streptococcus. Repeat blood cultures negative to date. Patient on ceftriaxone 2 g every 12 Fluids discontinued yesterday. Blood pressure still elevated despite addition of clonazepam. I have discussed with patient regarding possibility of adding blood pressure medication and she is agreeable. I will add medication for her today. She will need to follow-up with her primary for further management. Start lisinopril 10 - Hctz 12.5 mg daily. Awaiting culture sensitivity for [place] strep and blood. At that point I will decide antibiotic and course. CT facial bone negative for dental abscess. She will need a dentist appointment and follow-up discharge. She states she already has one set up. Full code GI soft diet. DVT prophylaxis Lovenox Attestations Medical Necessity Statement*: > 24 hour stay. 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
[2021-03-31 11:11] VITALS: BP 165/69; PULSE 59; RESP 17; TEMP 36.8; O2SAT 94
[2021-03-31] MEDS: hydroCHLOROthiazide 25 mg Tablet 12.5 MG PO (11:21)
[2021-03-31] MEDS: enoxaparin 40 mg/0.4 mL Syringe SUBCUT (11:22)
[2021-03-31] MEDS: lisinopril 10 mg Tablet PO (11:22)
[2021-03-31 16:00] VITALS: BP 176/84; PULSE 69; RESP 18; TEMP 36.4; O2SAT 95
[2021-03-31 19:44] VITALS: BP 156/88; PULSE 70; RESP 22; TEMP 36.9; O2SAT 93
[2021-03-31 23:25] VITALS: BP 172/88; PULSE 62; RESP 20; TEMP 36.4; O2SAT 97
[2021-03-31] MEDS: acetaminophen 325 mg Tablet 650 MG PO (23:43)
[2021-04-01] VITALS (12 sets, daily range): BP systolic 134–187; BP diastolic 69–113; PULSE 67–87; RESP 16–20; TEMP 36–37.1; O2SAT 96–99
[2021-04-01 03:03] LABS: Basophils # 0.1 10^3/uL (0.0-0.1); Basophils % 0.4 %; Eosinophils # 0.3 10^3/uL (0.0-0.8); Eosinophils % 2.4 %; Hematocrit 41.7 % (37.0-47.0); Hemoglobin 13.4 g/dL (11.5-15.3); Lymphocytes # 1.7 10^3/uL (0.8-4.8); Lymphocytes % 14.2 %; Mean Corpuscular HGB Conc 32.1 g/dL (30.0-36.0); Mean Corpuscular Volume 93.3 fl (81-99); Monocytes # 1.1 10^3/uL (0.2-0.9); Monocytes % 9.6 %; Neutrophils # 8.63 10^3/uL (1.8-7.7); Neutrophils % 73.1 %; Nucleated Red Blood Cells % 0 %; Platelet Count 186 10^3/cmm (130-400); Red Blood Count 4.47 10^6/uL (4.1-5.3); Red Cell Distribution Width 13.5 % (12.1-15.1); White Blood Count 11.8 10^3/uL (4.0-10.0)
[2021-04-01 03:12] LABS: Anion Gap 16.9 (5-19); Blood Urea Nitrogen 9 mg/dL (8-23); Calcium 8.4 mg/dL (8.5-10.5); Carbon Dioxide 24 mmol/L (22-29); Chloride 102 mmol/L (98-107); Creatinine Clr Calc Pharmacy 81.9304; Glomerular Filtration Rate 99.4 mL/min (90-130); Glucose 98 mg/dL (65-115); Magnesium 1.9 mg/dL (1.7-2.3); Osmolality Calculated 289 mOsm/kg (285-295); Sodium 140 mmol/L (136-145)
[2021-04-01 03:18] LABS: Potassium 2.9 mmol/L (3.5-5.1)
[2021-04-01] MEDS: piperacillin-tazobactam 3.375 GM in sodium chloride 0.9% (plus) 50 ML IV (04:03)
[2021-04-01 06:37] LABS: Phosphorus 3.6 mg/dL (2.5-4.5)
[2021-04-01] MEDS: lidocaine 1% 5 ML in potassium chloride premix 100 ML 25 ML IV (06:38)
[2021-04-01] MEDS: acetaminophen 325 mg Tablet 650 MG PO ×2 (06:43→14:41)
--- NOTE | 2021-04-01 10:35 | USCV_ITS ---
Yaa Sandhu Age: 70 Gender: F : 1950 Exam Date: 04/01/2021 12:14 Ordering Phys: La De La Cruz MD Technologist: Apple Benson Exam Location: [facility] – [place] Indication: EVAL FOR ENDOCARDITIS BP: / HR: Rhythm: Sinus Technical Quality: Good MEASUREMENTS (Male / Female) Normal Values Medications IV propofol administered with anesthesia service Complications None. Proc. Components The patient was brought to the ERIC examination room in a fasting state after obtaining an informed consent. The ERIC probe was passed into the posterior pharynx , mid-esophagus, distal esophagus, and gastric fundus. ERIC was performed at multiple levels. The patient tolerated the procedure well and there were no complications. FINDINGS Left Ventricle Appeared to be of normal size and ejection fraction. No intracavitary masses Right Ventricle Normal size and ejection fraction Right Atrium Prominent eustachian valve. Left Atrium Normal left atrial size. LA Appendage Normal left atrial appendage. Normal flow velocities in the left atrial appendage. IA Septum Patent foramen ovale with a givz-nh-wcmes shunt . Mitral Valve Structurally normal mitral valve. No masses or vegetations Aortic Valve Trileaflet with a thickening of the noncoronary cusp Tricuspid Valve No gross abnormalities noted Pulmonic Valve Structurally normal pulmonic valve. Pericardium No pericardial effusion. Aorta Normal aortic annulus size. Normal size aortic root and proximal ascending aorta. CONCLUSIONS No intracardiac masses or vegetations. Patent foramen ovale with left to right shunt Prominent eustachian valve Thickening of the noncoronary cusp of the aortic valve Normal LV size and ejection fraction No significant stenotic or regurgitant lesions Dr Veronica Howard MD FAC (Electronically Signed) Final Date: 01 April 2021 17:32 S
--- NOTE | 2021-04-01 11:09 | PM.PN ---
Subjective Subjective: Interval history: Strep viridans in blood. NPO for ERIC today. She feels well today. Denies abdominal pain. Vitals/I&O/Wt Last Vital Signs Temp 97.8 F 04/01/21 08:00 Pulse 70 04/01/21 08:10 Resp 18 04/01/21 08:10 BP 149/72 04/01/21 08:00 Pulse Ox 99 04/01/21 08:10 03/31/21 04/01/21 04/01/21 22:59 06:59 14:59 Intake Total 440 / 840 370 / 1210 240 / 240 Balance 440 / 840 370 / 1210 240 / 240 Weight last 48 hrs Weight 78.426 kg Physical Exam Narrative: EXAM NARRATIVE: General: Alert oriented x3, patient seen laying in bed today appearing very comfortable. HEENT: Normocephalic, atraumatic, EOMI, breathing normally. Normal respiratory effort no acute distress. Does have gum swelling present on the left side of mouth. Cardio: Regular rate rhythm, normal S1-S2, no gross murmurs. Respiratory: Good bilateral air entry, no wheezes no rhonchi appreciated GI: Abdomen soft, nontender, nondistended, bowel sounds +, no rebound tenderness or guarding. Extremities: Pulses 2+, no edema, no cyanosis Urinary Catheter Management^: Walton: Cath Placed During This Visit: yes, but has since been removed by the nurse Reason for Continuing Indwelling Catheter: Decision to DC Catheter Urinary Catheter Date of Insertion: 03/27/21 Urinary Catheter Time of Insertion: 09:19 Date Urinary Catheter Removed: 03/28/21 Time Urinary Catheter Discontinued: 14:17 Data : 04/01/21 02:28 04/01/21 02:28 Micro: Microbiology 03/27/21 06:15 Blood Culture - Final Blood Staphylococcus epidermidis Viridans streptococcus group 03/27/21 05:50 Blood Culture - Final Blood Staphylococcus epidermidis Viridans streptococcus group 03/30/21 08:44 Blood Culture - Preliminary Blood NEGATIVE TO DATE 03/30/21 08:47 Blood Culture - Preliminary Blood NEGATIVE TO DATE A&P Assessment and plan (1) Incarcerated ventral hernia: Status: Acute (2) Metabolic acidosis: Status: Acute (3) SBO (small bowel obstruction): Status: Acute (4) Abdominal wall hernia: Status: Acute (5) GERD (gastroesophageal reflux disease): Status: Acute (6) Anxiety: Status: Acute (7) Bradycardia: Status: Acute (8) Obstructive sleep apnea: Status: Acute Additional A&P Information #Incarcerated ventral hernia #SBO Status post surgery on 03/27 Postop day 4 No perioperative or postoperative complications Bowel function has returned. Cleared for discharge by surgery. Blood cultures are positive for alphahemolytic Streptococcus. Repeat blood cultures negative to date. Patient on ceftriaxone 2 g every 12 Fluids discontinued yesterday. Blood pressure still elevated despite addition of clonazepam. Increase lisinopril 20 - Hctz 25 mg daily. Awaiting culture sensitivity for Viridans strep in blood. Repeat BCx NTD. At that point I will decide antibiotic and course. CT facial bone negative for dental abscess. She will need a dentist appointment and follow-up discharge. She states she already has one set up. Will discuss with ID regarding final ABX and duration. Full code GI soft diet. DVT prophylaxis Lovenox Attestations Medical Necessity Statement*: > 24 hour stay. 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
--- NOTE | 2021-04-01 11:32 | PM.CONSULT ---
Providers/Reason For Consult Consulting Physician/Specialty*: VICTOR HUGO Howard MD/cardiology Reason for Consult*: Patient with blood culture positive for streptococcal epidermidis/rule out endocarditis with a ERIC Attending Physician: La De La Cruz MD Primary Care Provider: Alisha Fisher MD History of Present Illness History of Present Illness Yaa Sandhu is a 70 year old female who is admitted to hospital with complaints of nausea and vomiting. She was found to have incarcerated ventral hernia for which she underwent laparoscopic surgery. She has a questionable history of dental infection. Her blood culture grew streptococcal epidermidis.(2 out of 2 bottles). Cardiology consult is requested for a ERIC to evaluate for endocarditis. Patient has no previous history for any cardiac illness. No history for heart murmur or endocarditis. No history for drug abuse. She denies any chest pain or shortness of breath. Apparently she has not had any fever since the hospital admission. She has no history for any dysphagia or upper GI bleeding. She has a history of GERD. She has a history of ventral hernia repair prior to this hospital admission. Review of Systems Narrative: CONSTITUTIONAL: No fever or chills. EYES: No blurring of vision or other visual disturbances lately. ENT: No hoarseness of voice, auditory disturbances or sore throat. CARDIOVASCULAR: As mentioned above. RESPIRATORY: History of sleep apnea GASTROINTESTINAL: As mentioned above GENITOURINARY: No dysuria or hematuria. INTEGUMENTARY: No skin rashes or history of skin cancer. NEURO: No transient ischemic attacks or amaurosis. PSYCHIATRIC: No history of psychosis or major depression. HEMATOLOGIC: No bleeding disorders or significant anemia. ENDOCRINE: No history of polyuria or polydipsia. MUSCULOSKELETAL: No recent joint pain or swelling. ALLERGY/IMMUNOLOGY: As mentioned above. Meds/Allergies Home Medications and Allergies Home Medications Medication Instructions Recorded Confirmed Last Taken Type cholecalciferol (vitamin D3) 10 10 mcg PO DAILY 01/20/20 03/27/21 Unknown History mcg (400 unit) capsule melatonin 10 mg capsule 10 mg PO DAILY 01/20/20 03/27/21 Unknown History citalopram 40 mg tablet 80 mg .ROUTE DAILY #60 tab 03/02/21 03/27/21 Unknown Rx clonazepam 1 mg tablet 1 mg PO BID 30 Days #60 tab 03/02/21 03/27/21 Unknown Rx naproxen 500 mg tablet 500 mg PO BID PRN #60 tab 03/02/21 03/27/21 Unknown Rx hydrocodone-acetaminophen 1 tab PO Q6H PRN #20 tab 03/31/21 Unknown Rx Allergies Allergy/AdvReac Type Severity Reaction Status Date / Time metronidazole [From Flagyl] Allergy nausea Verified 03/27/21 04:41 Current Medications Current Medications Generic Name Dose Route Start Last Admin Trade Name Freq PRN Reason Stop Dose Admin Acetaminophen 650 mg 03/27/21 16:43 04/01/21 06:43 Acetaminophen 325 Mg Tablet PO 650 mg Q6H PRN Administration MILD PAIN OR INCREASE TEMP Clonazepam 1 mg 03/30/21 09:00 03/31/21 17:37 Clonazepam 1 Mg Tablet PO 1 mg BID ISAIAH Administration Lidocaine HCl 1.667 ml/ 0 ml 03/28/21 12:09 03/28/21 16:28 Diphenhydramine HCl 4.165 mg/ MUCOUS MEM 7.499 ml Al Hydrox/Mg Hydrox/ Q4H PRN Administration Simethicone 1.667 ml MOUTH PAIN Diphenhydramine HCl 12.5 mg 03/27/21 16:43 03/28/21 11:56 Diphenhydramine 50 Mg/Ml Sdv 1ml IVP 12.5 mg Q6H PRN Administration ITCHING Enoxaparin Sodium 40 mg 03/28/21 12:00 03/31/21 11:22 Enoxaparin 40 Mg/0.4 Ml Syringe SUBCUT 40 mg Q24H ISAIAH Administration Hydrochlorothiazide 12.5 mg 03/31/21 11:10 03/31/21 11:21 Hydrochlorothiazide 25 Mg Tablet PO 12.5 mg DAILY ISAIAH Administration Ceftriaxone Sodium 2,000 mg/ 50 mls @ 100 mls/hr 03/30/21 09:00 03/31/21 20:42 Sodium Chloride IV Infused Q12H ISAIAH Infusion Protocol Lactulose 15 gm 03/30/21 08:30 03/31/21 19:54 Lactulose Oral Liq 20 Gm/30 Ml Udc PO 15 gm Q12H ISAIAH Administration Lisinopril 10 mg 03/31/21 11:15 03/31/21 11:22 Lisinopril 10 Mg Tablet PO 10 mg DAILY ISAIAH Administration Ondansetron HCl 4 mg 03/27/21 08:16 03/28/21 16:02 Ondansetron 2 Mg/Ml Sdv 2 Ml IVP 4 mg Q6H PRN Administration NAUSEA AND VOMITING Pantoprazole Sodium 40 mg 03/27/21 09:00 03/31/21 09:20 Pantoprazole 40 Mg Sdv IVP 40 mg DAILY ISAIAH Administration Senna/Docusate Sodium 1 tab 03/27/21 18:00 03/31/21 17:36 Sennosides-Docusate Tablet PO 1 tab BID ISAIAH Administration PFSH Acute PFSH: Medical History Anxiety GERD (gastroesophageal reflux disease) ALEJANDRO (obstructive sleep apnea) Recurrent major depression Surgical History History of cholecystectomy History of incisional hernia repair (~12/2017) History of incisional hernia repair (03/27/21) Left lower quadrant spigelian-laparoscopic History of total hysterectomy S/P laparotomy for SBO from adhesions Status post colonoscopy (~2017) Family History Other Family history non-contributory Social History Smoking and tobacco status: current every day smoker Alcohol intake: never Vitals/I&O/Wt Last Vital Signs Temp 97.8 F 04/01/21 11:07 Pulse 73 04/01/21 11:07 Resp 18 04/01/21 11:07 BP 149/72 04/01/21 08:00 Pulse Ox 99 04/01/21 11:07 03/31/21 04/01/21 04/01/21 22:59 06:59 14:59 Intake Total 440 / 840 370 / 1210 240 / 240 Balance 440 / 840 370 / 1210 240 / 240 Weight last 48 hrs Weight 172 lb 14.4 oz Physical Exam Narrative: EXAM NARRATIVE: GENERAL: The patient is alert and oriented times three. Not in any acute distress. HEENT: No significant pallor, icterus or lymphadenopathy.Oral cavity: There are no mucous membrane lesions. NECK: Trachea appears to be central. No masses noted. No JVD or thyromegaly appreciated. RESPIRATORY: Chest is symmetrical. No intercostals muscle retraction or any accessory muscle activation. There is no chest wall tenderness. Breath sounds are heard bilaterally. No rales or rhonchi heard. No evidence of any consolidation. BREASTS: Deferred. HEART: The heart sounds are normal. No S3 or S4. No significant murmurs. No pericardial rub ABDOMEN: Some tenderness at the incision sites. Bowel sounds are normal. : Deferred. RECTAL: Deferred. LYMPHATIC: No lymphadenopathy noted in the neck or groin. EXTREMITIES: No edema or cyanosis. MUSCULOSKELETAL: No acute joint deformities or swelling SKIN: There are no significant rashes or ecchymosis NEUROPSYCHIATRIC: The patient is alert and oriented x3. No focal motor deficits. Urinary Catheter Management^: Walton: Cath Placed During This Visit: yes, but has since been removed by the nurse Reason for Continuing Indwelling Catheter: Decision to DC Catheter Urinary Catheter Date of Insertion: 03/27/21 Urinary Catheter Time of Insertion: 09:19 Date Urinary Catheter Removed: 03/28/21 Time Urinary Catheter Discontinued: 14:17 Data Micro: Micro: Microbiology 03/27/21 06:15 Blood Culture - Fi nal Blood Staphylococcus epidermidis Viridans strept ococcus group 03/27/21 05:50 Blood Culture - Fi nal Blood Staphylococcus epidermidis Viridans strept ococcus group 03/30/21 08:44 Blood Culture - Pr eliminary Blood NEGATIVE TO SCHUYLER E 03/30/21 08:47 Blood Culture - Pr eliminary Blood NEGATIVE TO SCHUYLER E Imaging^: Echo: My impression: 1-Normal left ventricular cavity size. Normal left ventricular systolic function. No regional wall motion abnormalities. Left ventricular ejection fraction is estimated at 65 %. 2-Moderately thickened mitral valve. No mitral valve stenosis. Mild mitral valve regurgitation. 3-Moderate aortic valve calcification. Mild aortic valve stenosis, mean gradient 2.3 mmHg, BRANDT 2.8 cm squared. Mild aortic valve regurgitation. 4-The right ventricle is normal in size and function. RVSP could not be calculated due to incomplete tricuspid regurgitation velocity profile. 5-No significant change since the prior echocardiogram study of 03/28/2021. A&P Assessment and plan (1) Staphylococcus epidermidis bacteremia: Patient has no peripheral signs of endocarditis at this time. The transthoracic echocardiogram revealed no masses or vegetations. The findings are as mentioned above. For further evaluation, a ERIC would be appropriate Status: Acute (2) History of incisional hernia repair: Patient seems to be doing okay. Status: Acute (3) Obstructive sleep apnea: Patient has been compliant with the CPAP Status: Acute (4) Bradycardia: No documented bradycardia on the telemetry so far. Status: Acute Additional A&P Information Patient currently has no contraindication for a transesophageal echocardiogram. Procedure was explained to the patient in detail. The risk of aspiration, bleeding, soft tissue injury, perforation of the stomach/esophagus and other concomitant complications were explained to the patient in detail. The patient understood this well and consented to proceed Based on the ERIC findings, further recommendations will be made. 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
--- NOTE | 2021-04-01 11:38 | ANES.PREANE2 ---
Pre-Anesthetic Assessment Pre-Anesthetic Assessment: Height/Weight: Height 1.42 m Weight 78.426 kg Temp Pulse Resp BP Pulse Ox 98.4 F 67 16 141/113 98 04/01/21 11:31 04/01/21 11:31 04/01/21 11:31 04/01/21 11:31 04/01/21 11:31 Preop Diagnosis: Incarcerated spigelian hernia Proposed Procedure: Operation Date: 03/27/21 13:30 Proposed Procedures p Laparoscopic Incisional Hernia Repair with mesh(Not Applicable) - Miguel Garrett MD Operation Date: 04/01/21 11:30 Proposed Procedures p ERIC(Not Applicable) - Veronica Howard MD Familial anesthetic complications: None Was Beta Christopher taken within 24 hours: N/A Last intake: 03/30/20 Social: Social History: No alcohol and No tobacco Exam: Pre-Anes Outpt Exam: alert, oriented x 3, clear to auscultation bilaterally and regular rate & rhythm Airway: Submandibular: WNL Cervical ROM: WNL MP: 1 Dentition: Chipped and Loose Additional comments: Loose upper central incisor Pulmonary: Pulmonary: Sleep apnea CV/HEM: Comments: TTE 03/30/20 CONCLUSIONS 1-Normal left ventricular cavity size. Normal left ventricular systolic function. No regional wall motion abnormalities. Left ventricular ejection fraction is estimated at 65 %. 2-Moderately thickened mitral valve. No mitral valve stenosis. Mild mitral valve regurgitation. 3-Moderate aortic valve calcification. Mild aortic valve stenosis, mean gradient 2.3 mmHg, BRANDT 2.8 cm squared. Mild aortic valve regurgitation. 4-The right ventricle is normal in size and function. RVSP could not be calculated due to incomplete tricuspid regurgitation velocity profile. 5-No significant change since the prior echocardiogram study of 03/28/2021. : Comments: Hypokalemia GI: GI: GERD Comments: Incarcerated ventral hernia POD #6 with culture positive bacteremia and Metabolic: Metabolic: None reported Musc/skel: Musc/skel: None reported Neuropsych: Neuropsych: Anxiety Anesthetic Plan: ASA status: 3 Anesthesia: MAC Other: We discussed risk and beneftis of MAC anesthesia as well as possible conversion to general including spectrum of anesthesia with possible recall of intraoperative events/stimuli/discomfort. Patient agrees to proceed with MAC> Risk of > 500 ml blood loss (7ml/kg in children): No Meds/Allergies Current Medications: Current Medications Generic Name Dose Route Start Last Admin Trade Name Freq PRN Reason Stop Dose Admin Acetaminophen 650 mg 03/27/21 16:43 04/01/21 06:43 Acetaminophen 32 5 Mg Tablet PO 650 mg Q6H PRN Administration MILD PAIN OR INCR EASE TEMP Clonazepam 1 mg 03/30/21 09:00 03/31/21 17:37 Clonazepam 1 Mg Tablet PO 1 mg BID ISAIAH Administration Lidocaine HCl 1.66 7 ml/ 0 ml 03/28/21 12:09 03/28/21 16:28 Diphenhydramine HC l 4.165 mg/ MUCOUS MEM 7.499 ml Al Hydrox/Mg [place] x/ Q4H PRN Administration Simethicone 1.667 ml MOUTH PAIN Diphenhydramine HC l 12.5 mg 03/27/21 16:43 03/28/21 11:56 Diphenhydramine 50 Mg/Ml Sdv 1ml IVP 12.5 mg Q6H PRN Administration ITCHING Enoxaparin Sodium 40 mg 03/28/21 12:00 03/31/21 11:22 Enoxaparin 40 Mg /0.4 Ml Syringe SUBCUT 40 mg Q24H ISAIAH Administration Hydrochlorothiazid e 12.5 mg 03/31/21 11:10 03/31/21 11:21 Hydrochlorothiaz [place] 25 Mg Tablet PO 12.5 mg DAILY ISAIAH Administration Ceftriaxone Sodium 2,000 mg/ 50 mls @ 100 mls/ hr 03/30/21 09:00 03/31/21 20:42 Sodium Chloride IV Infused Q12H ISAIAH Infusion Protocol Lactulose 15 gm 03/30/21 08:30 03/31/21 19:54 Lactulose Oral L iq 20 Gm/30 Ml Udc PO 15 gm Q12H ISAIAH Administration Lisinopril 10 mg 03/31/21 11:15 03/31/21 11:22 Lisinopril 10 Mg Tablet PO 10 mg DAILY ISAIAH Administration Ondansetron HCl 4 mg 03/27/21 08:16 03/28/21 16:02 Ondansetron 2 Mg /Ml Sdv 2 Ml IVP 4 mg Q6H PRN Administration NAUSEA AND VOMITI NG Pantoprazole Sodiu m 40 mg 03/27/21 09:00 03/31/21 09:20 Pantoprazole 40 Mg Sdv IVP 40 mg DAILY ISAIAH Administration Senna/Docusate Sod ium 1 tab 03/27/21 18:00 03/31/21 17:36 Sennosides-Docus ate Tablet PO 1 tab BID ISAIAH Administration PFSH Anesthesia PFSH: Medical History Anxiety GERD (gastroesophageal reflux disease) ALEJANDRO (obstructive sleep apnea) Recurrent major depression Surgical History History of cholecystectomy History of incisional hernia repair (~12/2017) History of incisional hernia repair (03/27/21) Left lower quadrant spigelian-laparoscopic History of total hysterectomy S/P laparotomy for SBO from adhesions Status post colonoscopy (~2017) Family History Other Family history non-contributory Social History Smoking and tobacco status: current every day smoker Alcohol intake: never Data Anesthesia CBC & Chem 7: 04/01/21 02:28 04/01/21 02:28 Other Labs: Laboratory Results - last 48 hr 03/31/21 03/31/21 04/01/21 02:13 02:13 02:28 WBC 11.9 H 11.8 H RBC 4.07 L 4.47 Hgb 12.3 13.4 Hct 37.5 41.7 MCV 92.1 93.3 MCH 30.2 30.0 MCHC 32.8 32.1 RDW 13.4 13.5 Plt Count 185 186 MPV 11.5 H 12.0 H Neut % (Auto) 74.9 73.1 Lymph % (Auto) 13.7 14.2 [place] % (Auto) 9.1 9.6 Eos % (Auto) 1.6 2.4 Baso % (Auto) 0.4 0.4 Neut # (Auto) 8.93 H 8.63 H Lymph # (Auto) 1.6 1.7 [place] # (Auto) 1.1 H 1.1 H Eos # (Auto) 0.2 0.3 Baso # (Auto) 0.1 0.1 Nucleated RBC % (auto) 0 0 Nucleated RBCs # 0.0 0.0 Sodium 138 Potassium 3.1 L Chloride 103 Carbon Dioxide 25 Anion Gap 13.1 BUN 6 L Creatinine 0.5 GFR Calculation 122.7 Glucose 100 Calculated Osmolality 284 L Calcium 8.2 L Phosphorus Magnesium 1.9 04/01/21 04/01/21 02:28 02:28 WBC RBC Hgb Hct MCV MCH MCHC RDW Plt Count MPV Neut % (Auto) Lymph % (Auto) [place] % (Auto) Eos % (Auto) Baso % (Auto) Neut # (Auto) Lymph # (Auto) [place] # (Auto) Eos # (Auto) Baso # (Auto) Nucleated RBC % (auto) Nucleated RBCs # Sodium 140 Potassium 2.9 L Chloride 102 Carbon Dioxide 24 Anion Gap 16.9 BUN 9 Creatinine 0.6 GFR Calculation 99.4 Glucose 98 Calculated Osmolality 289 Calcium 8.4 L Phosphorus 3.6 Magnesium 1.9 Micro: Microbiology 03/27/21 06:15 Blood Culture - Final Blood Staphylococcus epidermidis Viridans streptococcus group 03/27/21 05:50 Blood Culture - Final Blood Staphylococcus epidermidis Viridans streptococcus group 03/30/21 08:44 Blood Culture - Preliminary Blood NEGATIVE TO DATE 03/30/21 08:47 Blood Culture - Preliminary Blood NEGATIVE TO DATE Cardiac Studies: Echocardiogram 03/28/21 Echocardiogram Limited Views 03/30/21
[2021-04-01] MEDS: sodium chloride 0.9% 1,000 ML 30 ML IV (11:40)
--- NOTE | 2021-04-01 12:31 | PC.SOCIAL ---
IMM Updated Updated pt on IMM. No questions voiced. Provided pt a copy. Initialed, dated, & timed copy in chart.
--- NOTE | 2021-04-01 12:52 | P.ANESASSM_ITS ---
Pre-Anesthetic Assessment Pre-Anesthetic Assessment: Height/Weight: Height 1.42 m Weight 78.426 kg Temp Pulse Resp BP Pulse Ox 97.6 F 72 18 159/80 99 04/01/21 12:49 04/01/21 12:49 04/01/21 12:49 04/01/21 12:49 04/01/21 12:49 Preop Diagnosis: Incarcerated spigelian hernia Proposed Procedure: Operation Date: 03/27/21 13:30 Proposed Procedures p Laparoscopic Incisional Hernia Repair with mesh(Not Applicable) - Miguel Garrett MD Operation Date: 04/01/21 11:30 Proposed Procedures p ERIC(Not Applicable) - Veronica Howard MD Was Beta Christopher taken within 24 hours: N/A Was Clonidine taken within 24 hours: N/A Social: Social History: Tobacco and No alcohol Exam: Pre-Anes Outpt Exam: alert, oriented x 3, clear to auscultation bilaterally and regular rate & rhythm Airway: Submandibular: WNL Cervical ROM: WNL MP: 2 Dentition: Caps (loose) Pulmonary: Pulmonary: COPD and Sleep apnea CV/HEM: CV/HEM: Arrythmia GI: GI: GERD Metabolic: Metabolic: Morbid obesity Musc/skel: Musc/skel: OA/DJD Neuropsych: Neuropsych: Anxiety and Depression Anesthetic Plan: ASA status: 3 Anesthesia: MAC Risk of > 500 ml blood l oss (7ml/kg in children): No Meds/Allergies Current Medications: Current Medications Generic Name Dose Route Start Last Admin Trade Name Freq PRN Reason Stop Dose Admin Acetaminophen 650 mg 03/27/21 16:43 04/01/21 06:43 Acetaminophen 32 5 Mg Tablet PO 650 mg Q6H PRN Administration MILD PAIN OR INCR EASE TEMP Clonazepam 1 mg 03/30/21 09:00 03/31/21 17:37 Clonazepam 1 Mg Tablet PO 1 mg BID ISAIAH Administration Lidocaine HCl 1.66 7 ml/ 0 ml 03/28/21 12:09 03/28/21 16:28 Diphenhydramine HC l 4.165 mg/ MUCOUS MEM 7.499 ml Al Hydrox/Mg [place] x/ Q4H PRN Administration Simethicone 1.667 ml MOUTH PAIN Diphenhydramine HC l 12.5 mg 03/27/21 16:43 03/28/21 11:56 Diphenhydramine 50 Mg/Ml Sdv 1ml IVP 12.5 mg Q6H PRN Administration ITCHING Enoxaparin Sodium 40 mg 03/28/21 12:00 03/31/21 11:22 Enoxaparin 40 Mg /0.4 Ml Syringe SUBCUT 40 mg Q24H ISAIAH Administration Hydrochlorothiazid e 12.5 mg 03/31/21 11:10 03/31/21 11:21 Hydrochlorothiaz [place] 25 Mg Tablet PO 12.5 mg DAILY ISAIAH Administration Ceftriaxone Sodium 2,000 mg/ 50 mls @ 100 mls/ hr 03/30/21 09:00 03/31/21 20:42 Sodium Chloride IV Infused Q12H ISAIAH Infusion Protocol Sodium Chloride 1,000 mls @ 30 ml s/hr 04/01/21 11:30 04/01/21 11:40 Sodium Chloride 0.9% IV 04/02/21 11:29 30 mls/hr .Q24H ISAIAH Administration Lactulose 15 gm 03/30/21 08:30 03/31/21 19:54 Lactulose Oral L iq 20 Gm/30 Ml Udc PO 15 gm Q12H ISAIAH Administration Lisinopril 10 mg 03/31/21 11:15 03/31/21 11:22 Lisinopril 10 Mg Tablet PO 10 mg DAILY ISAIAH Administration Ondansetron HCl 4 mg 03/27/21 08:16 03/28/21 16:02 Ondansetron 2 Mg /Ml Sdv 2 Ml IVP 4 mg Q6H PRN Administration NAUSEA AND VOMITI NG Pantoprazole Sodiu m 40 mg 03/27/21 09:00 03/31/21 09:20 Pantoprazole 40 Mg Sdv IVP 40 mg DAILY ISAIAH Administration Senna/Docusate Sod ium 1 tab 03/27/21 18:00 03/31/21 17:36 Sennosides-Docus ate Tablet PO 1 tab BID ISAIAH Administration PFSH Anesthesia PFSH: Medical History Anxiety GERD (gastroesophageal reflux disease) ALEJANDRO (obstructive sleep apnea) Recurrent major depression Surgical History History of cholecystectomy History of incisional hernia repair (~12/2017) History of incisional hernia repair (03/27/21) Left lower quadrant spigelian-laparoscopic History of total hysterectomy S/P laparotomy for SBO from adhesions Status post colonoscopy (~2018) Family History Other Family history non-contributory Social History Smoking and tobacco status: current every day smoker Alcohol intake: never Data Anesthesia CBC & Chem 7: 04/01/21 02:28 04/01/21 02:28 Other Labs: Laboratory Results - last 48 hr 03/31/21 03/31/21 04/01/21 02:13 02:13 02:28 WBC 11.9 H 11.8 H RBC 4.07 L 4.47 Hgb 12.3 13.4 Hct 37.5 41.7 MCV 92.1 93.3 MCH 30.2 30.0 MCHC 32.8 32.1 RDW 13.4 13.5 Plt Count 185 186 MPV 11.5 H 12.0 H Neut % (Auto) 74.9 73.1 Lymph % (Auto) 13.7 14.2 [place] % (Auto) 9.1 9.6 Eos % (Auto) 1.6 2.4 Baso % (Auto) 0.4 0.4 Neut # (Auto) 8.93 H 8.63 H Lymph # (Auto) 1.6 1.7 [place] # (Auto) 1.1 H 1.1 H Eos # (Auto) 0.2 0.3 Baso # (Auto) 0.1 0.1 Nucleated RBC % (auto) 0 0 Nucleated RBCs # 0.0 0.0 Sodium 138 Potassium 3.1 L Chloride 103 Carbon Dioxide 25 Anion Gap 13.1 BUN 6 L Creatinine 0.5 GFR Calculation 122.7 Glucose 100 Calculated Osmolality 284 L Calcium 8.2 L Phosphorus Magnesium 1.9 04/01/21 04/01/21 02:28 02:28 WBC RBC Hgb Hct MCV MCH MCHC RDW Plt Count MPV Neut % (Auto) Lymph % (Auto) [place] % (Auto) Eos % (Auto) Baso % (Auto) Neut # (Auto) Lymph # (Auto) [place] # (Auto) Eos # (Auto) Baso # (Auto) Nucleated RBC % (auto) Nucleated RBCs # Sodium 140 Potassium 2.9 L Chloride 102 Carbon Dioxide 24 Anion Gap 16.9 BUN 9 Creatinine 0.6 GFR Calculation 99.4 Glucose 98 Calculated Osmolality 289 Calcium 8.4 L Phosphorus 3.6 Magnesium 1.9 Micro: Microbiology 03/27/21 06:15 Blood Culture - Final Blood Staphylococcus epidermidis Viridans streptococcus group 03/27/21 05:50 Blood Culture - Final Blood Staphylococcus epidermidis Viridans streptococcus group 03/30/21 08:44 Blood Culture - Preliminary Blood NEGATIVE TO DATE 03/30/21 08:47 Blood Culture - Preliminary Blood NEGATIVE TO DATE Cardiac Studies: Echocardiogram 03/28/21 Echocardiogram Limited Views 03/30/21
--- NOTE | 2021-04-01 12:53 | ANE.PACU2 ---
Inpatient post-anesthesia follow up: Airway intact: Yes Vital signs: Temperature 97.6 F Pulse Rate 72 Respiratory Rate 18 Blood Pressure 159/80 Pulse Oximetry 99 Oxygen Delivery Me thod Simple Mask Oxygen Flow Rate 6 Fraction of Inspir ed Oxygen Hydration adequate: Yes Nausea and vomiting: No Pain level: 2 Mental status: Baseline
--- NOTE | 2021-04-01 13:03 | PC.NURSE ---
1300 report called to [place] DAVALOS on [facility].
[2021-04-01] MEDS: cefTRIAXone 2,000 MG in sodium chloride 0.9% (plus) 50 ML 100 MG IV (14:42)
[2021-04-01] MEDS: CLONazepam 1 mg Tablet PO ×2 (14:42→21:51)
[2021-04-01] MEDS: potassium chloride oral liq 20 mEq/15 mL UDC 40 MEQ PO (18:01)
[2021-04-01] MEDS: lisinopril 10 mg Tablet PO (18:01)
[2021-04-01] MEDS: potassium chloride oral liq 20 mEq/15 mL UDC PO (18:03)
[2021-04-01] MEDS: zolpidem 5 mg Tablet PO (21:51)
[2021-04-01] MEDS: phenol oral Spray 177 mL 3 SPRAY MUCOUS MEM (21:53)
[2021-04-02 00:16] VITALS: BP 137/64; PULSE 64; RESP 19; TEMP 36.8; O2SAT 94
[2021-04-02] MEDS: cefTRIAXone 2,000 MG in sodium chloride 0.9% (plus) 50 ML 100 MG IV ×2 (02:36→16:12)
[2021-04-02 03:27] LABS: Basophils % 0.3 %; Eosinophils # 0.3 10^3/uL (0.0-0.8); Eosinophils % 3.2 %; Hematocrit 38.3 % (37.0-47.0); Hemoglobin 12.4 g/dL (11.5-15.3); Lymphocytes # 1.3 10^3/uL (0.8-4.8); Mean Corpuscular HGB Conc 32.4 g/dL (30.0-36.0); Mean Corpuscular Hemoglobin 29.6 pg (28.0-34.0); Mean Corpuscular Volume 91.4 fl (81-99); Mean Platelet Volume 12.1 fL (7.4-10.4); Monocytes # 0.9 10^3/uL (0.2-0.9); Monocytes % 8.8 %; Neutrophils # 7.38 10^3/uL (1.8-7.7); Neutrophils % 74.5 %; Nucleated Red Blood Cells % 0 %; Platelet Count 209 10^3/cmm (130-400); Red Blood Count 4.19 10^6/uL (4.1-5.3); Red Cell Distribution Width 13.9 % (12.1-15.1); White Blood Count 9.9 10^3/uL (4.0-10.0)
[2021-04-02 03:40] LABS: Anion Gap 16.3 (5-19); Blood Urea Nitrogen 13 mg/dL (8-23); Calcium 9.1 mg/dL (8.5-10.5); Carbon Dioxide 23 mmol/L (22-29); Chloride 107 mmol/L (98-107); Glomerular Filtration Rate 122.7 mL/min (90-130); Glucose 92 mg/dL (65-115); Magnesium 1.9 mg/dL (1.7-2.3); Osmolality Calculated 296 mOsm/kg (285-295); Potassium 3.3 mmol/L (3.5-5.1); Sodium 143 mmol/L (136-145)
[2021-04-02 04:01] VITALS: BP 183/77; PULSE 72; RESP 18; TEMP 37.1; O2SAT 95
[2021-04-02 05:23] VITALS: BP 162/76
[2021-04-02 08:05] VITALS: PULSE 81; RESP 15; O2SAT 97
[2021-04-02] MEDS: hydroCHLOROthiazide 25 mg Tablet 12.5 MG PO ×2 (08:46→17:22)
[2021-04-02] MEDS: CLONazepam 1 mg Tablet PO ×2 (08:47→19:48)
[2021-04-02] MEDS: lisinopril 10 mg Tablet PO ×2 (08:48→17:21)
[2021-04-02] MEDS: pantoprazole 40 mg SDV IVP (08:49)
--- NOTE | 2021-04-02 08:50 | PM.PN ---
Subjective Subjective: Interval history: Patient has been doing well denies any nausea or vomiting, tolerating regular diet, had bowel movement Vitals/I&O/Wt Last Vital Signs Temp 98.8 F 04/02/21 04:01 Pulse 81 04/02/21 08:05 Resp 15 04/02/21 08:05 BP 162/76 04/02/21 05:23 Pulse Ox 97 04/02/21 08:05 04/01/21 04/02/21 04/02/21 22:59 06:59 14:59 Intake Total 445 / 1045 110 / 1045 Balance 445 / 1045 110 / 1045 Weight last 48 hrs Weight 171 lb 12.8 oz Weight 172 lb 14.4 oz Physical Exam Narrative: EXAM NARRATIVE: Abdomen: Soft, nontender, nondistended, incisions healing well, has abdominal wall ecchymosis Urinary Catheter Management^: [place]: Cath Placed During This Visit: yes, but has since been removed by the nurse Reason for Continuing Indwelling Catheter: Decision to DC Catheter Urinary Catheter Date of Insertion: 03/27/21 Urinary Catheter Time of Insertion: 09:19 Date Urinary Catheter Removed: 03/28/21 Time Urinary Catheter Discontinued: 14:17 Data : 04/02/21 02:28 04/02/21 02:28 A&P Assessment and plan (1) History of incisional hernia repair: 70-year-old female status post laparoscopic repair of incarcerated spigelian hernia, overall doing well. GI soft diet Lovenox for DVT prophylaxis Protonix for GI prophylaxis Continue lactulose and senna Ambulate ad vinit[place]. Awaiting PICC line placement, okay to discharge from surgical standpoint Status: Acute Attestations Medical Necessity Statement*: As per primary Coding Level of Care Code Acute Lithographic Press Feeder for Tio Choi Diagnoses History of incisional hernia repair Z98.890; Z87.19
[2021-04-02 09:00] VITALS: BP 170/80; PULSE 70; RESP 18; TEMP 36.2; O2SAT 98
--- NOTE | 2021-04-02 12:15 | P.DS_ITS ---
Discharge Providers Date of Admission: 03/27/21 16:58 Date of Discharge: April 02, 2021 Attending Provider at Admission: Miguel Garrett MD Attending Provider at Discharge: La De La Cruz MD Primary Care Provider: Alisha Fisher MD Diagnoses at Discharge Discharge Diagnosis (1) History of incisional hernia repair: Status: Acute Permanent problem details: Left lower quadrant spigelian-laparoscopic Reason for Visit Reason for Visit: ABD PAIN Physical Exam Urinary Catheter Management^: [place]: Cath Placed During This Visit: yes, but has since been removed by the nurse Reason for Continuing Indwelling Catheter: Decision to DC Catheter Urinary Catheter Date of Insertion: 03/27/21 Urinary Catheter Time of Insertion: 09:19 Date Urinary Catheter Removed: 03/28/21 Time Urinary Catheter Discontinued: 14:17 Discharge Data Data Completed and Pending: Completed Studies During Hospitalization Category Date Time Status CT abdomen pelvis w con* [id number] Urge nt Cat Scan 03/27/21 04:[address] facial bones w con [id number] Urgent Cat Scan 03/30/21 07:57 Completed XR chest 1V [id number] Stat Exams 03/27/21 08:13 Completed XR chest 1V andi ble [id number] Stat Exams 03/27/21 05:30 Completed CV. echo complete * [id number] Routine Ultrasound 03/28/21 08:20 Completed CV. echo limited [id number] Routine Ultrasound 03/30/21 07:56 Completed CV. echo transeso phageal [id number] Rout ine Ultrasound 04/01/21 10:35 Completed Pending at discharge Category Date Time Status ES surgery / GI i mages Routine Exams 03/27/21 13:26 Taken Blood Culture Sta t Lab 03/30/21 08:47 Results Labs from last 24 hours 04/02/21 04/02/21 02:28 02:28 WBC 9.9 RBC 4.19 Hgb 12.4 Hct 38.3 MCV 91.4 MCH 29.6 MCHC 32.4 RDW 13.9 Plt Count 209 MPV 12.1 H Neut % (Auto) 74.5 Lymph % (Auto) 13.0 [place] % (Auto) 8.8 Eos % (Auto) 3.2 Baso % (Auto) 0.3 Neut # (Auto) 7.38 Lymph # (Auto) 1.3 [place] # (Auto) 0.9 Eos # (Auto) 0.3 Baso # (Auto) 0.0 Nucleated RBC % (a uto) 0 Nucleated RBCs # 0.0 Sodium 143 Potassium 3.3 L Chloride 107 Carbon Dioxide 23 Anion Gap 16.3 BUN 13 Creatinine 0.5 GFR Calculation 122.7 Glucose 92 Calculated Osmolal ity 296 H Calcium 9.1 Magnesium 1.9 Vitals: Last Vital Signs Temp 97.2 F L 04/02/21 09:00 Pulse 70 04/02/21 09:00 Resp 18 04/02/21 09:00 BP 170/80 04/02/21 09:00 Pulse Ox 98 04/02/21 09:00 Discharge Plan Discharge Patient Disposition: Home Condition: Stable Prescriptions: New hydrocodone-acetaminophen 5-325 mg tablet 1 tab PO Q6H PRN (Reason: pain) Qty: 20 RF: 0 Zofran 4 mg tablet 4 mg PO Q6H PRN (Reason: nausea and vomiting) Qty: 20 RF: 0 Senna with Docusate Sodium 8.6-50 mg tablet 1 tab-cap PO BID Qty: 30 RF: 0 lisinopril-hydrochlorothiazide 20-25 mg tablet 1 tab PO DAILY 30 Days Qty: 30 RF: 0 Continued naproxen 500 mg tablet 500 mg PO BID PRN (Reason: pain/arthritis) Qty: 60 RF: 2 citalopram 40 mg tablet 80 mg .ROUTE DAILY Qty: 60 RF: 6 clonazepam 1 mg tablet 1 mg PO BID 30 Days Qty: 60 RF: 5 melatonin 10 mg capsule 10 mg PO DAILY RF: 0 cholecalciferol (vitamin D3) 10 mcg (400 unit) capsule 10 mcg PO DAILY RF: 0 Discharge Orders: Discharge Order (Routine); Ordered 04/02/21 Ordered By: La De La Cruz Referrals: corry oliva [Other] - 1-3 days (Must follow up with dentist as soon as possible. ) Alisha Fisher MD [Primary Care Provider] - 1 week Miguel Garrett MD [Physician] - 2 weeks Savanna Wheat MD [Hospitalist] - 1 week (Strep viridans bacteremia. ERIC negative. Being sent on 4 weeks of augmentin. Please adjust antibiotics) Discharge Diet: Low Salt Discharge Activity: Increase activity as tolerated Patient Instructions: Opioid Safety Activity Restrictions/Additional Instructions: Diet Advance to normal diet as tolerated, increase fluid intake as much as possible. Activity Avoid strenuous activity for 2 weeks but continue with daily activities including walking as tolerated. Do not lift more than 10 pounds for 2 weeks Return to work/school You can return to work/ school whenever you feel ready as long as you don?t have to lift more than 10 pounds at work. If you have paperwork that needs to be completed for time off from work, please contact my office Driving You can resume driving once you stop using narcotic pain medications, and transition to non-opioid pain medications like Tylenol, Motrin, Aleve, etc. Medications Pain Take opioid pain medications as prescribed and transition to non-opioid pain medications like Tylenol, Motrin, Aleve etc. over the next few days. The goal of the pain medications is to make the pain bearable and not to be pain free since you recently had surgery. Resume all home medications after surgery as per the medication reconciliation list Nausea Nausea is common after surgery, take nausea medications as needed and stay on a liquid bland diet until nausea resolves. Constipation The combination of surgery, anesthesia and pain medications can result in constipation. Take stool softeners as prescribed. If you do not have a bowel movement in 3 days, please take an tidi-ljf-uitihbr laxative like MiraLAX to address the constipation. Shower It is ok to shower but avoid getting the wound wet for 48 hours after surgery. Do not soak in bathtub, swimming pool or hot tub for 2 weeks. Wound care If glue has been used on your incisions after surgery, the glue on the incision will peel slowly over the next two weeks. The stitches used are dissolvable and will not need to be removed. Do not apply antibiotics or other medications on the incision Problems with the wound: you can develop some redness around the incision from bruising after surgery. If there is increasing pain, redness, tenderness around the incision with or without drainage, please contact my office to rule out an infection. Sometimes the skin at the incisions can separate, resulting in reopening of the wound. Cover the wound with antibiotic cream and sterile dressings and contact my office. Contact physician Call the office at [phone] during office hours or go the Emergency Room ?Fever to 100.4 or greater ?Shaking chills ?Pain that increases over time ?Redness, warmth, or pus draining from incision sites ?Persistent nausea or inability to take in liquids Coding Level of Care Code Acute [facility] note Diagnoses History of incisional hernia repair Z98.890; Z87.19
--- NOTE | 2021-04-02 13:22 | PM.PN ---
Subjective Subjective: Interval history: Patient seen this morning. Latest blood cultures are negative to date. She will need a PICC line placed and be sent home on ceftriaxone 2 g daily for 14 days. Discussed this with ID over the phone. Discussed with patient and she is okay to stay. [employer] will be set up for her to get IV antibiotics as an outpatient. She offers no complaints overnight. Vitals/I&O/Wt Last Vital Signs Temp 97.2 F L 04/02/21 09:00 Pulse 70 04/02/21 09:00 Resp 18 04/02/21 09:00 BP 170/80 04/02/21 09:00 Pulse Ox 98 04/02/21 09:00 04/01/21 04/02/21 04/02/21 22:59 06:59 14:59 Intake Total 445 / 935 110 / 1045 Balance 445 / 935 110 / 1045 Weight last 48 hrs Weight 77.927 kg Weight 78.426 kg Physical Exam Narrative: EXAM NARRATIVE: General: Alert oriented x3, patient seen laying in bed today Cardio: Regular rate rhythm, normal S1-S2, no gross murmurs. Respiratory: Good bilateral air entry, no wheezes no rhonchi appreciated GI: Abdomen soft, nontender, nondistended, bowel sounds + Extremities: Unremarkable Urinary Catheter Management^: [place]: Cath Placed During This Visit: yes, but has since been removed by the nurse Reason for Continuing Indwelling Catheter: Decision to DC Catheter Urinary Catheter Date of Insertion: 03/27/21 Urinary Catheter Time of Insertion: 09:19 Date Urinary Catheter Removed: 03/28/21 Time Urinary Catheter Discontinued: 14:17 Data : 04/02/21 02:28 04/02/21 02:28 A&P Assessment and plan (1) History of incisional hernia repair: Status: Acute Additional A&P Information #Incarcerated ventral hernia #SBO Status post surgery on 03/27 Postop day 5 No perioperative or postoperative complications Bowel function has returned. Cleared for discharge by surgery. Blood cultures are positive for alphahemolytic Streptococcus. Repeat blood cultures negative to date. ERIC negative for endocarditis. Increase lisinopril 20 - Hctz 25 mg daily. Culture sensitivity for Viridans strep in blood shows that is sensitive to ceftriaxone. Repeat BCx NTD. CT facial bone negative for dental abscess. She will need a dentist appointment and follow-up discharge. She states she already has one set up. Will discuss with ID regarding final ABX and duration. Recommendation has been placed for PICC line with ceftriaxone 2 g daily for 2 weeks from last known negative blood culture. ? We'll order PICC line for patient. Full code GI soft diet. DVT prophylaxis Lovenox Attestations Medical Necessity Statement*: Discharge after PICC line placed on IV antibiotics. Until this is done patient will need to stay in the hospital for IV antibiotics. Coding Level of Care Code Acute Unit Aide Tech for Tio Choi Diagnoses History of incisional hernia repair Z98.890; Z87.19
--- NOTE | 2021-04-02 14:02 | PC.CHAP ---
Pastoral Care Encounter/Spiritual Assessment Type of Contact [] Declined dinker visit [] Patient/Family/Request visit [] Outpatient visit [xx] Follow-up visit [] Physician referral [] Code/Alert [] Routine visit [] Staff referral [] Actively dying [xx] Patient sleeping [] Family support [] [] Out of room [] Palliative care [] [] Receiving care in room [] Pre-surgical visit [] Trauma [xx] Long length of stay [] ICU visit [] Other: Relational/Emotional Strength [] Patient feels connected with others/family/visitors/staff [] Distress [] Loneliness/isolation [] Abandonment Spirituality of Patient [] Person of Elvi [] Attends Yarsani of their Elvi [] Believes in Prayer [] Reads Bible or Anabaptism materials [] There are Spiritual issues to be addressed Assembly Associate Interventions [] Prayer [] Active listening [] Non-anxious presence [] Spiritual/emotional support [] Crisis/trauma care [] Spiritual counseling [] Bereavement support [] Provided bereavement packet [] Provided Bible/devotional materials [] Provided toy/stuffed animal, coloring book to patient or family member [] Provided Communion [] Anointing/[place] [] Salvation [] Completed spiritual assessment [] Other: Impact on Illness or Injury [] Angry [] Fearful [] Anxious [] Often cries [] Exhaustion [] Unable to work [] Unable to attend amish [] Unable to walk/stand [] Unable to read [] Unable to drive [] Unable to eat/drink [] Unable to sleep [] Unable to be with family [] Patient intubated [] Other: Summary Patient in medicated sleep. Follow up later. Time spent with patient
[2021-04-02] MEDS: fluconazole 100 mg Tablet 150 MG PO (18:48)
[2021-04-02] MEDS: enoxaparin 40 mg/0.4 mL Syringe SUBCUT (18:49)
[2021-04-02] MEDS: zolpidem 5 mg Tablet PO (19:47)
[2021-04-02 20:05] VITALS: BP 138/65; PULSE 68; RESP 21; TEMP 36.6; O2SAT 90
[2021-04-03] VITALS: BP 149/76; PULSE 69; RESP 18; TEMP 36.7; O2SAT 96
[2021-04-03 03:44] VITALS: BP 171/78; PULSE 72; RESP 19; TEMP 36.9; O2SAT 98
[2021-04-03 08:51] VITALS: BP 187/95; PULSE 78; RESP 18; TEMP 36.8; O2SAT 98
[2021-04-03] MEDS: pantoprazole 40 mg SDV IVP (09:25)
[2021-04-03] MEDS: CLONazepam 1 mg Tablet PO ×2 (09:26→17:37)
[2021-04-03] MEDS: acetaminophen 325 mg Tablet 650 MG PO ×2 (09:26→17:37)
[2021-04-03] MEDS: lisinopril 20 mg Tablet PO (09:26)
[2021-04-03] MEDS: hydroCHLOROthiazide 25 mg Tablet PO (09:26)
--- NOTE | 2021-04-03 11:19 | P.PN_ITS ---
Subjective Subjective: Interval history: Patient has been doing well denies any nausea or vomiting, tolerating regular diet, had bowel movement Vitals/I&O/Wt Last Vital Signs Temp 98.2 F 04/03/21 08:51 Pulse 78 04/03/21 08:51 Resp 18 04/03/21 08:51 BP 187/95 04/03/21 08:51 Pulse Ox 98 04/03/21 08:51 04/02/21 04/03/21 04/03/21 22:59 06:59 14:59 Intake Total 170 / 250 80 / 250 Balance 170 / 250 80 / 250 Weight last 48 hrs Weight 167 lb 12.8 oz Weight 171 lb 12.8 oz Physical Exam Narrative: EXAM NARRATIVE: Abdomen: soft NT, ND Urinary Catheter Management^: Walton: Cath Placed During This Visit: yes, but has since been removed by the nurse Reason for Continuing Indwelling Catheter: Decision to DC Catheter Urinary Catheter Date of Insertion: 03/27/21 Urinary Catheter Time of Insertion: 09:19 Date Urinary Catheter Removed: 03/28/21 Time Urinary Catheter Discontinued: 14:17 Data : 04/02/21 02:28 04/02/21 02:28 A&P Assessment and plan (1) History of incisional hernia repair: 70-year-old female status post laparoscopic repair of incarcerated spigelian hernia, overall doing well. GI soft diet Lovenox for DVT prophylaxis Protonix for GI prophylaxis Continue lactulose and senna Ambulate ad [place]. 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
--- NOTE | 2021-04-03 11:50 | P.PN_ITS ---
Subjective Subjective: Interval history: Patient is walking in the hallway, awaiting PICC line placement Vitals/I&O/Wt Last Vital Signs Temp 98.2 F 04/03/21 08:51 Pulse 78 04/03/21 08:51 Resp 18 04/03/21 08:51 BP 187/95 04/03/21 08:51 Pulse Ox 98 04/03/21 08:51 04/02/21 04/03/21 04/03/21 22:59 06:59 14:59 Intake Total 170 / 170 80 / 250 Balance 170 / 170 80 / 250 Weight last 48 hrs Weight 76.113 kg Weight 77.927 kg Physical Exam Narrative: EXAM NARRATIVE: Patient is walking in the hallway Afebrile S1, S2 Abdomen soft Nonfocal neuro exam Doing well on room air No active stridor or wheezing Urinary Catheter Management^: Walton: Cath Placed During This Visit: yes, but has since been removed by the nurse Reason for Continuing Indwelling Catheter: Decision to DC Catheter Urinary Catheter Date of Insertion: 03/27/21 Urinary Catheter Time of Insertion: 09:19 Date Urinary Catheter Removed: 03/28/21 Time Urinary Catheter Discontinued: 14:17 Data : 04/02/21 02:28 04/02/21 02:28 A&P Assessment and plan (1) Streptococcus viridans infection: Status: Acute (2) History of incisional hernia repair: Status: Acute (3) Incarcerated ventral hernia: Status: Acute (4) SBO (small bowel obstruction): Status: Acute Additional A&P Information SBO status post surgery on 03/27 Postop day 6 Awaiting PICC line placement, she will get ceftriaxone 2 g daily for 2 weeks for strep viridans, she has an appointment with her dentist as well on of this month Full code Cardiac diet DVT prophylaxis Lovenox which I will hold on Monday Hypertension: Optimize antihypertensive regimen, hypokalemia: Repleted Attestations Medical Necessity Statement*: Awaiting PICC placement Time Spent in Patient Care: less than 15 minutes Coding Level of Care Code Acute Account Manager [employer] for Ariag Fwd Diagnoses Streptococcus viridans infection A49.1 History of incisional hernia repair Z98.890; Z87.19 Incarcerated ventral hernia K43.6 SBO (small bowel obstruction) K56.609
[2021-04-03] MEDS: amlodipine 10 mg Tablet PO (13:06)
[2021-04-03] MEDS: potassium chloride ER 20 mEq Tablet 40 MEQ PO (13:07)
--- NOTE | 2021-04-03 13:26 | PC.SOCIAL ---
IMM update IMM updated with patient. Verbalized an understanding. Copy Pg 2 provided. Initialled, dated, timed, and placed in chart.
[2021-04-03 15:36] VITALS: BP 149/74; PULSE 63; RESP 18; TEMP 36.6; O2SAT 96
[2021-04-03] MEDS: cefTRIAXone 2,000 MG in sodium chloride 0.9% (plus) 50 ML 100 MG IV (15:54)
[2021-04-03] MEDS: enoxaparin 40 mg/0.4 mL Syringe SUBCUT (15:55)
[2021-04-03 20:17] VITALS: PULSE 86; RESP 16; O2SAT 96
[2021-04-03] MEDS: zolpidem 5 mg Tablet PO (20:24)
[2021-04-03 20:27] VITALS: BP 137/84; PULSE 86; RESP 16; TEMP 36.8; O2SAT 97
[2021-04-04 00:10] VITALS: BP 98/63; PULSE 60; RESP 16; O2SAT 95
[2021-04-04 04:20] VITALS: BP 118/75; PULSE 65; RESP 16; TEMP 36.5; O2SAT 94
--- NOTE | 2021-04-04 06:05 | PC.NURSE ---
shift summary pt rested well through out the night, no c/o at this time.
[2021-04-04 07:34] VITALS: BP 131/68; PULSE 64; RESP 16; TEMP 36.5; O2SAT 95
[2021-04-04] MEDS: CLONazepam 1 mg Tablet PO ×2 (09:42→18:11)
[2021-04-04] MEDS: amlodipine 10 mg Tablet PO (09:42)
[2021-04-04] MEDS: hydroCHLOROthiazide 25 mg Tablet PO (09:42)
[2021-04-04] MEDS: pantoprazole DR 40 mg Tablet PO (09:43)
[2021-04-04] MEDS: lisinopril 20 mg Tablet PO (09:43)
[2021-04-04 11:22] VITALS: BP 97/62; PULSE 63; RESP 18; TEMP 36.3; O2SAT 96
--- NOTE | 2021-04-04 12:28 | P.PN_ITS ---
Subjective Subjective: Interval history: Patient was walking in the hallway today, no overnight events, She is eager to return home after PICC line placement tomorrow She will get ceftriaxone 2 g daily for 2 weeks and follow-up with ID Vitals/I&O/Wt Last Vital Signs Temp 97.4 F L 04/04/21 11:22 Pulse 63 04/04/21 11:22 Resp 18 04/04/21 11:22 BP 97/62 04/04/21 11:22 Pulse Ox 96 04/04/21 11:22 04/03/21 04/04/21 04/04/21 22:59 06:59 14:59 Intake Total 530 / 530 Balance 530 / 530 Weight last 48 hrs Weight 76.113 kg Physical Exam Narrative: EXAM NARRATIVE: Patient is comfortable No overnight events Afebrile S1, S2 Abdomen soft Having bowel movement every day Nonfocal neuro exam No audible stridor or wheezing On room air doing well Urinary Catheter Management^: Walton: Cath Placed During This Visit: yes, but has since been removed by the nurse Reason for Continuing Indwelling Catheter: Decision to DC Catheter Urinary Catheter Date of Insertion: 03/27/21 Urinary Catheter Time of Insertion: 09:19 Date Urinary Catheter Removed: 03/28/21 Time Urinary Catheter Discontinued: 14:17 Data : 04/02/21 02:28 04/02/21 02:28 Micro: Microbiology 03/30/21 08:47 Blood Culture - Final Blood NO GROWTH AFTER 5 DAYS 03/30/21 08:44 Blood Culture - Final Blood NO GROWTH AFTER 5 DAYS A&P Additional A&P Information Awaiting PICC line placement tomorrow we will go home on ceftriaxone 2 g daily for 14 days from culture-negative date, follow-up with Dr. Wheat/ID clinic I will request CBC only tomorrow She has appointment with her dentist on Cardiac diet DVT prophylaxis: Lovenox Attestations Medical Necessity Statement*: Discharge tomorrow Time Spent in Patient Care: less than 15 minutes Coding Level of Care Code Acute Administrative Assistant Coordinator for Tio Choi
[2021-04-04] MEDS: cefTRIAXone 2,000 MG in sodium chloride 0.9% (plus) 50 ML 100 MG IV (12:51)
[2021-04-04 15:07] VITALS: BP 101/63; PULSE 58; RESP 18; TEMP 36.5; O2SAT 95
[2021-04-04] MEDS: enoxaparin 40 mg/0.4 mL Syringe SUBCUT (18:10)
[2021-04-04] MEDS: zolpidem 5 mg Tablet PO (20:02)
[2021-04-04 20:07] VITALS: PULSE 88; RESP 16; O2SAT 96
[2021-04-05 01:03] VITALS: BP 102/59; PULSE 52; RESP 18; TEMP 36.6; O2SAT 96
[2021-04-05 04:51] VITALS: BP 117/69; PULSE 59; RESP 18; TEMP 37; O2SAT 96
[2021-04-05 04:52] LABS: Basophils # 0.1 10^3/uL (0.0-0.1); Basophils % 0.6 %; Eosinophils # 0.3 10^3/uL (0.0-0.8); Eosinophils % 2.5 %; Hematocrit 41.7 % (37.0-47.0); Hemoglobin 13.6 g/dL (11.5-15.3); Lymphocytes # 1.9 10^3/uL (0.8-4.8); Lymphocytes % 19.4 %; Mean Corpuscular HGB Conc 32.6 g/dL (30.0-36.0); Mean Corpuscular Hemoglobin 29.8 pg (28.0-34.0); Mean Corpuscular Volume 91.4 fl (81-99); Mean Platelet Volume 12.7 fL (7.4-10.4); Monocytes # 0.9 10^3/uL (0.2-0.9); Monocytes % 8.9 %; Neutrophils # 6.73 10^3/uL (1.8-7.7); Neutrophils % 68.2 %; Nucleated Red Blood Cells % 0 %; Platelet Count 220 10^3/cmm (130-400); Red Blood Count 4.56 10^6/uL (4.1-5.3); Red Cell Distribution Width 14.3 % (12.1-15.1); White Blood Count 9.9 10^3/uL (4.0-10.0)
[2021-04-05 07:49] VITALS: BP 104/54; PULSE 82; RESP 18; TEMP 36.6; O2SAT 97
[2021-04-05 09:05] VITALS: PULSE 80; RESP 18; O2SAT 96
[2021-04-05] MEDS: lisinopril 20 mg Tablet PO (09:55)
[2021-04-05] MEDS: amlodipine 10 mg Tablet PO (09:55)
[2021-04-05] MEDS: pantoprazole DR 40 mg Tablet PO (09:55)
[2021-04-05] MEDS: hydroCHLOROthiazide 25 mg Tablet PO (09:55)
[2021-04-05] MEDS: CLONazepam 1 mg Tablet PO (09:55)
--- NOTE | 2021-04-05 11:56 | XR_ITS ---
WS: [id number] XR chest 1V portable [id number] REASON FOR EXAM: Post PICC placement FINDINGS: Right arm PICC line has been placed. The tip is in the superior vena cava in good position. No significant chest abnormality. XR/XR chest 1V portable [id number] IMPRESSION: PICC line placement in proper position.
[2021-04-05 12:08] VITALS: BP 114/69; PULSE 62; RESP 18; TEMP 36.3; O2SAT 93
--- NOTE | 2021-04-05 12:08 | PC.SOCIAL ---
IMM Updated Updated pt on IMM. No questions voiced. Provided pt a copy. Initialed, dated, & timed copy in chart.
--- NOTE | 2021-04-05 13:43 | P.DS_ITS ---
Discharge Providers Date of Admission: 03/27/21 16:58 Date of Discharge: April 05, 2021 Attending Provider at Admission: Miguel Garrett MD Attending Provider at Discharge: Jasmeet Peterson MD Primary Care Provider: Alisha Fisher MD Diagnoses at Discharge Discharge Diagnosis (1) Streptococcus viridans infection: Status: Acute (2) History of incisional hernia repair: Status: Acute Permanent problem details: Left lower quadrant spigelian-laparoscopic (3) Incarcerated ventral hernia: Status: Acute (4) SBO (small bowel obstruction): Status: Acute Reason for Visit Reason for Visit: ABD PAIN Hospital Course Hospital Course Patient was admitted on 03/27 for small bowel obstruction, incarcerated ventral hernia, Dr. Garrett consulted who did laparoscopic lysis of adhesion with laparoscopic repair of incarcerated ventral hernia with placement of ST mesh, patient tolerated procedure very well, during postoperative period her blood culture returned positive for alpha hemolytic strep pyogenes, she had gingivitis, she has a dentist appointment on 12 April, she was treated adequa tely with cephalosporins, she remained afebrile, leukocytosis improved. She was having regular bowel movement. PICC line was placed on 04/05, she will be discharged home on 14-day regimen of ceftriaxone 2 g daily. Outpatient follow- up with ID Dr. Wheat. CT facial bone negative for dental abscess. Transesophageal echo did not show any signs of endocarditis. First blood culture positive on 03/27, repeat blood culture 03/30 negative to date. Physical Exam Narrative: EXAM NARRATIVE: Patient is comfortable Afebrile S1, S2 Abdomen soft Having bowel movement every day Nonfocal neuro exam No audible stridor or wheezing On room air doing well Urinary Catheter Management^: Walton: Cath Placed During This Visit: yes, but has since been removed by the nurse Reason for Continuing Indwelling Catheter: Decision to DC Catheter Urinary Catheter Date of Insertion: 03/27/21 Urinary Catheter Time of Insertion: 09:19 Date Urinary Catheter Removed: 03/28/21 Time Urinary Catheter Discontinued: 14:17 Discharge Data Data Completed and Pending: Completed Studies During Hospitalization Category Date Time Status CT abdomen pelvis w con* [id number] Urge nt Cat Scan 03/27/21 04:[address] facial bones w con [id number] Urgent Cat Scan 03/30/21 07:57 Completed CXRP [XR chest 1V portable [id number]] R outine Exams 04/05/21 11:56 Completed XR chest 1V [id number] Stat Exams 03/27/21 08:13 Completed XR chest 1V andi ble [id number] Stat Exams 03/27/21 05:30 Completed CV. echo complete * [id number] Routine Ultrasound 03/28/21 08:20 Completed CV. echo limited [id number] Routine Ultrasound 03/30/21 07:56 Completed CV. echo transeso phageal [id number] Rout ine Ultrasound 04/01/21 10:35 Completed Pending at discharge Category Date Time Status ES surgery / GI i mages Routine Exams 03/27/21 13:26 Taken Labs from last 24 hours 04/05/21 03:20 WBC 9.9 RBC 4.56 Hgb 13.6 Hct 41.7 MCV 91.4 MCH 29.8 MCHC 32.6 RDW 14.3 Plt Count 220 MPV 12.7 H Neut % (Auto) 68.2 Lymph % (Auto) 19.4 [place] % (Auto) 8.9 Eos % (Auto) 2.5 Baso % (Auto) 0.6 Neut # (Auto) 6.73 Lymph # (Auto) 1.9 [place] # (Auto) 0.9 Eos # (Auto) 0.3 Baso # (Auto) 0.1 Nucleated RBC % (a uto) 0 Nucleated RBCs # 0.0 Vitals: Last Vital Signs Temp 97.3 F L 04/05/21 12:08 Pulse 62 04/05/21 12:08 Resp 18 04/05/21 12:08 BP 114/69 04/05/21 12:08 Pulse Ox 93 04/05/21 12:08 Discharge Plan Discharge Patient Disposition: Home Condition: Stable Prescriptions: New hydrocodone-acetaminophen 5-325 mg tablet 1 tab PO Q6H PRN (Reason: pain) Qty: 20 RF: 0 Zofran 4 mg tablet 4 mg PO Q6H PRN (Reason: nausea and vomiting) Qty: 20 RF: 0 Senna with Docusate Sodium 8.6-50 mg tablet 1 tab-cap PO BID Qty: 30 RF: 0 lisinopril-hydrochlorothiazide 20-25 mg tablet 1 tab PO DAILY 30 Days Qty: 30 RF: 0 pantoprazole 40 mg Tablet,Delayed Release (Dr/Ec) 40 mg PO DAILY Qty: 30 RF: 3 ceftriaxone 2 gram recon soln 2 g IV Q24H 7 Days Qty: 10 RF: 0 Continued naproxen 500 mg tablet 500 mg PO BID PRN (Reason: pain/arthritis) Qty: 60 RF: 2 citalopram 40 mg tablet 80 mg .ROUTE DAILY Qty: 60 RF: 6 clonazepam 1 mg tablet 1 mg PO BID 30 Days Qty: 60 RF: 5 melatonin 10 mg capsule 10 mg PO DAILY RF: 0 cholecalciferol (vitamin D3) 10 mcg (400 unit) capsule 10 mcg PO DAILY RF: 0 Discharge Orders: Discharge Order (Routine); Ordered 04/05/21 Ordered By: Jasmeet Peterson Referrals: corry oliva [Other] - 04/08/21 10:45 am (Must follow up with dentist as soon as possible. APPOINTMENT WITH DR PAGE IN DR OLIVA OFFICE ON 04-08-21 AT 10:45) [facility] [Outside] [facility] [Outside] (Your IV antibiotic, ceftriaxone, will be provided by [facility]. They will be in contact with you by phone to discuss delivery. They quoted $74.28 weekly. ) Alisha Fisher MD [Primary Care Provider] - 04/12/21 10:30 am Miguel Garrett MD [Physician] - 04/20/21 8:30 am Savanna Wheat MD [Hospitalist] - 1 week (Strep viridans bacteremia. ERIC negative. Being sent on 4 weeks of augmentin. Please adjust antibiotics DR NATH OFFICE WILL CALL WITH APPOINTMENT) Discharge Diet: Low Salt Discharge Activity: Increase activity as tolerated Patient Instructions: Hydrocodone/Acetaminophen (By mouth) (Vicodin, [place], Lortab), Ondansetron (By mouth) (Zofran, Zofran ODT, Zuplenz), Ceftriaxone (By injection) (Rocephin, Novaplus cefTRIAXone,..., Pantoprazole (By mouth) (Protonix), Lisinopril/Hydrochlorothiazide (By mouth) (Prinzide, Zestoretic), Laxative, Stimulant Combination (By mouth) (Yolanda-Colace, Doc-Q-Lax,..., Ventral Hernia Repair (DC), How to Care for Your PICC (Peripherally Inserted Central Catheter) (DC), Opioid Safety Activity Restrictions/Additional Instructions: You will need 2 weeks of antibiotics for culture-negative date which is 03/30/2021 will give you 7 more doses to finish the course Diet Advance to normal diet as tolerated, increase fluid intake as much as possible. Activity Avoid strenuous activity for 2 weeks but continue with daily activities including walking as tolerated. Do not lift more than 10 pounds for 2 weeks Return to work/school You can return to work/ school whenever you feel ready as long as you don?t have to lift more than 10 pounds at work. If you have paperwork that needs to be completed for time off from work, please contact my office Driving You can resume driving once you stop using narcotic pain medications, and transition to non-opioid pain medications like Tylenol, Motrin, Aleve, etc. Medications Pain Take opioid pain medications as prescribed and transition to non-opioid pain medications like Tylenol, Motrin, Aleve etc. over the next few days. The goal of the pain medications is to make the pain bearable and not to be pain free since you recently had surgery. Resume all home medications after surgery as per the medication reconciliation list Nausea Nausea is common after surgery, take nausea medications as needed and stay on a liquid bland diet until nausea resolves. Constipation The combination of surgery, anesthesia and pain medications can result in constipation. Take stool softeners as prescribed. If you do not have a bowel mo vement in 3 days, please take an reqi-yrw-olpiodn laxative like MiraLAX to address the constipation. Shower It is ok to shower but avoid getting the wound wet for 48 hours after surgery. Do not soak in bathtub, swimming pool or hot tub for 2 weeks. Wound care If glue has been used on your incisions after surgery, the glue on the incision will peel slowly over the next two weeks. The stitches used are dissolvable and will not need to be removed. Do not apply antibiotics or other medications on the incision Problems with the wound: you can develop some redness around the incision from bruising after surgery. If there is increasing pain, redness, tenderness around the incision with or without drainage, please contact my office to rule out an infection. Sometimes the skin at the incisions can separate, resulting in reopening of the wound. Cover the wound with antibiotic cream and sterile dressings and contact my office. Contact physician Call the office at [phone] during office hours or go the Emergency Room ?Fever to 100.4 or greater ?Shaking chills ?Pain that increases over time ?Redness, warmth, or pus draining from incision sites ?Persistent nausea or inability to take in liquids Discharge Attestations Time Spent in Discharge Care*: less than 30 min Quality Metrics Clinical Quality Measures During this hospital stay, did patient experience: None Coding Level of Care Code Acute [facility] note Diagnoses Streptococcus viridans infection A49.1 History of incisional hernia repair Z98.890; Z87.19 Incarcerated ventral hernia K43.6 SBO (small bowel obstruction) K56.609
[2021-04-05] MEDS: cefTRIAXone 2,000 MG in sodium chloride 0.9% (plus) 50 ML 100 MG IV (14:51)
--- NOTE | 2021-04-05 15:29 | PM.PN ---
Subjective Subjective: Interval history: Patient has been doing well denies any nausea or vomiting, tolerating regular diet, had bowel movement Vitals/I&O/Wt Last Vital Signs Temp 97.3 F L 04/05/21 12:08 Pulse 62 04/05/21 12:08 Resp 18 04/05/21 12:08 BP 114/69 04/05/21 12:08 Pulse Ox 93 04/05/21 12:08 04/05/21 04/05/21 04/05/21 06:59 14:59 22:59 Intake Total 120 / 120 Balance 120 / 120 Physical Exam Narrative: EXAM NARRATIVE: Abdomen: Soft, nontender, nondistended Urinary Catheter Management^: Walton: Cath Placed During This Visit: yes, but has since been removed by the nurse Reason for Continuing Indwelling Catheter: Decision to DC Catheter Urinary Catheter Date of Insertion: 03/27/21 Urinary Catheter Time of Insertion: 09:19 Date Urinary Catheter Removed: 03/28/21 Time Urinary Catheter Discontinued: 14:17 Data : 04/05/21 03:20 04/02/21 02:28 A&P Assessment and plan (1) History of incisional hernia repair: 70-year-old female status post laparoscopic repair of incarcerated spigelian hernia, overall doing well. GI soft diet Lovenox for DVT prophylaxis Protonix for GI prophylaxis Continue lactulose and senna Ambulate ad [place]. Awaiting PICC line placement, okay to discharge from surgical standpoint Status: Resolved Attestations Medical Necessity Statement*: As per primary Coding Level of Care Code Acute Parimutuel Ticket Cashier for Tio Choi Diagnoses History of incisional hernia repair Z98.890; Z87.19
[2021-04-05 16:48] VITALS: BP 114/69; PULSE 62; RESP 18; TEMP 36.3; O2SAT 93
== END 2021-04-05 16:49 | disposition home or self-care (01) | DRG 336 ==
LOC: ER 07:26 → OR 08:21 → MEDSURG 03-28 12:57
PROVIDERS: Emergency Medicine; Hospitalist; Internal Medicine; Internal Medicine Cardiovascular Disease; Admitting Provider Surgery; Emergency Provider Family Medicine; PCP Family Medicine; Visit Provider Internal Medicine
PROC: 0WQF4ZZ Repair Abdominal Wall, Percutaneous Endoscopic Approach (ICD-10-PCS; principal; 2021-03-27 13:30)
PROC: B24BZZZ Ultrasonography of Heart with Aorta (ICD-10-PCS; CPT 93312; principal; 2021-04-01 11:30)
DX: K43.0 Incisional hernia with obstruction, without gangrene (principal); F33.9 Major depressive disorder, recurrent, unspecified; E87.2 Acidosis; F41.9 Anxiety disorder, unspecified; K21.9 Gastro-esophageal reflux disease without esophagitis; G47.33 Obstructive sleep apnea (adult) (pediatric); F17.210 Nicotine dependence, cigarettes, uncomplicated; I10 Essential (primary) hypertension; K05.10 Chronic gingivitis, plaque induced; B95.4 Other streptococcus as the cause of diseases classified elsewhere
CPT/HCPCS: 36415; 36569; 51702; 70487; 71045; 74177; 80048; 80053; 81001; 83605; 83690; 83735; 84100; 84145; 84443; 84484; 85025; 86140; 87040; 87077; 87186; 87205; 93005; 93306; 93308; 93312; 93320; 93325; 94664; 96372; 97116; 97161; 97530; C1781; C9113; C9290; J0330; J0360; J0696; J1100; J1170; J1200; J1650; J2270; J2370; J2405; J2543; J2550; J2704; J2710; J2765; J3010; J3480; J3490; J7030; J7040; Q9967

== ENCOUNTER → 2021-09-13 11:17 | Outpatient (BNVA) | payer MEDICARE, SELFPAY | PROVIDERS: PCP Family Medicine; Visit Provider Nurse Practitioner | DX: F33.1 Major depressive disorder, recurrent, moderate (principal); F41.1 Generalized anxiety disorder; F12.10 Cannabis abuse, uncomplicated | CPT/HCPCS: 90792 ==

== ENCOUNTER 2021-09-14 15:00 | Outpatient (CLI) | payer MEDICARE, SELFPAY ==
--- NOTE | 2021-09-14 15:13 | MM_ITS ---
WS: [id number] BILATERAL 3D TOMOSYNTHESIS DIGITAL SCREENING MAMMOGRAPHY WITH CAD CLINICAL INFORMATION: SCREEN HISTORY: Screening mammogram. No current complaints. COMPARISON: August 06, 2020 TECHNIQUE: Bilateral CC and MLO views. FINDINGS: Scattered fibroglandular densities bilaterally. Biopsy clip LEFT breast. Biopsy clip RIGHT breast wit h stable nodule mid depth the 9:00 position. A few incidental punctate calcifications. No suspicious focal mass, asymmetry, calcifications, or architectural distortion. No evidence of malignancy. MM/[place] [id number] IMPRESSION: BI-RADS: 2-Benign FOLLOW UP: 1 Year Follow-up Recommend return to annual screening mammography.
== END 2021-09-14 15:01 | disposition home or self-care (01) ==
LOC: RAD 15:02
PROVIDERS: PCP Family Medicine; Visit Provider Family Medicine
DX: Z12.31 Encounter for screening mammogram for malignant neoplasm of breast (principal)
CPT/HCPCS: 77063; 77067